=== PATIENT | male | born 1990 | race Two or more races ===

== ENCOUNTER 2022-02-21 10:06 | Emergency (ER) | payer OTHER, SELFPAY ==
--- NOTE | ~2022-02-21 | XR_ITS ---
EXAMINATION: XR CHEST CLINICAL INFORMATION: Shortness of breath and chest pain. COMPARISON: None TECHNIQUE: 2 views of the chest were obtained. FINDINGS: Low lung volume is present bilaterally. No significant abnormality is noted involving the heart, lungs, mediastinum, bony thorax or soft tissues. XR/XR chest 2V IMPRESSION: Low lung volume bilaterally, otherwise unremarkable.
--- NOTE | 2022-02-21 10:12 | ED_ITS ---
HPI - General Adult General Chief complaint: Allergic Reaction Stated complaint: Allergic Reaction Time Seen by Provider: 02/21/22 10:12 Source: patient and EMS Mode of arrival: EMS Limitations: no limitations History of Present Illness HPI narrative: Patient is a 31 year old diabetic male presenting to the emergency department today with a possible allergic reaction. Patient states that he was sitting at his computer when he noticed a rash to his right forearm that began to be itchy and then he had a moment of shortness of breath. Patient states that his shortness of breath resolved instantaneously and he does not have a history of asthma. Patient denies any current dizziness, lightheadedness, abdominal pain, nausea, vomiting, fever, chills, blurry vision, double vision, loss of vision, chest pain, difficulty breathing, shortness of breath, back pain, night sweats, pain with urination, increased urinary frequency, increased urinary urgency, blood in his urine or stool, syncope or a near syncopal episode, recent trauma or falls, bowel incontinence, bladder incontinence, bowel retention, bladder retention, or any other complaints at this time. Onset (ago): minute(s) Severity: mild Severity scale (1-10): 1 Relieving factors: none Exacerbating factors: none Associated symptoms: shortness of breath (now resolved) Treatments prior to arrival: none Related Data Previous Rx's Medication Instructions Recorded atorvastatin 40 mg tablet 40 mg PO BEDTIME 90 days #90 tabs 09/18/21 cholecalciferol (vitamin D3) 1,250 1,250 mcg PO QWEEK 30 days #5 caps 09/18/21 mcg (50,000 unit) capsule fluticasone propionate 50 1 spray intranasal BID #16 grams 09/18/21 mcg/actuation nasal spray,suspension (Flonase Allergy Relief) metformin 1,000 mg tablet 1,000 mg PO BID 90 days #180 tabs 09/18/21 omeprazole 20 mg capsule,delayed 20 mg PO DAILY 90 days #90 caps 09/18/21 release insulin lispro 200 unit/mL (3 mL) 10 unit (0.05 mL) subcut TID 90 09/30/21 subcutaneous pen (Humalog #13.5 mL U-200 Insulin) dulaglutide 0.75 mg/0.5 mL 0.75 mg (0.5 mL) subcut QWEEK 30 11/03/21 subcutaneous pen injector days #2.5 mL (Trulicity) flash glucose scanning reader #1 ea 11/03/21 (FreeStyle Amauri 14 Day [place]) flash glucose sensor (FreeStyle #2 ea 11/11/21 Amauri 14 Day Sensor) Allergies Allergy/AdvReac Type Severity Reaction Status Date / Time shellfish derived Allergy Unknown UNKNOWN Verified 09/18/21 14:32 [SHELLFISH DERIVED] Review of Systems Constitutional: Constitutional: Reports no additional constitutional complaints, Denies chills, Denies fever(s) and Denies night sweats Eyes: Eyes: Reports no additional eye complaints, Denies blurry vision, Denies change in vision, Denies diplopia, Denies eye discharge, Denies loss of vision and Denies eye pain ENT: Denies dizziness Cardiovascular: Cardiovascular: Reports no additional cardiovascular complaints, Denies chest pain, Denies lightheadedness, Denies Loss of Consciousness and Reports dyspnea (now resolved) Respiratory: Respiratory: Reports no additional respiratory complaints and Reports dyspnea (now resolved) Gastrointestinal: Gastrointestinal: Reports no additional gastrointestinal complaints, Denies abdominal pain, Denies melena, Denies hematochezia, Denies change in bowel habits and Denies change in stool character Genitourinary: Genitourinary: Reports no additional male genitourinary complaints, Denies hematuria, Denies oliguria, Denies difficulty urinating, Denies dysuria, Denies urinary frequency, Denies urinary hesitancy, Denies urinary incontinence and Denies urinary urgency Musculoskeletal: Musculoskeletal: Reports no additional musculoskeletal complaints, Denies numbness and Denies tingling Integumentary/Breasts: Comments: rash to right forearm Neurologic: Denies dizziness, Denies loss of vision, Denies numbness and Den ies tingling Psychiatric: Psychiatric: Reports no additional psychiatric complaints Endocrine: Endocrine: Reports no additional endocrine complaints Hematologic/Lymphatic: Hematologic/Lymphatic: Reports no additional hematologic/lymphatic complaints Allergic/Immunologic: Allergic/Immunologic: Reports no additional allergic/immunologic complaints PMFSH Past Medical History Attestation statement: The following information was validated with the patient. Source: old records reviewed Surgical History History of inguinal hernia repair Family History Family History Father CAD (coronary artery disease) Diabetes Hypertension Mother Diabetes Hypertension Social History Social History Housing: Apartment Alcohol intake: current Alcohol intake frequency: holidays/special occasions only Patient Tobacco Use Status: Never used Tobacco Second Hand Smoke Exposure: No Use of substances other than those prescribed or required for medical reasons: No Advance Directives: No Advance Directives Information Provided: No service: No Current occupational status: unemployed and student Physical Exam ED Vital Signs: Vital Signs - 24 hr 02/21/22 10:17 02/21/22 10:43 02/21/22 13:54 Temperature 98.3 F Pulse Rate 95 95 94 Respiratory Rate 18 18 Blood Pressure 144/86 H 117/74 Pulse Oximetry 97 98 Oxygen Delivery Method Room Air Room Air BMI result Body Mass Index 31.8 Const General: cooperative, no acute distress, alert and awake Nutritional Appearance: well nourished Orientation/consciousness: patient oriented x3 Limitations: no limitations HENMT Head: Yes normal to inspection and Yes atraumatic Ears: hearing grossly normal bilaterally and external ears normal General nose exam: Normal external nose present, no nasal discharge noted and no epistaxis Face and sinus: Yes normal facial exam, No abrasion and No laceration Mouth: Normal oral and palatal mucosa present, no drooling and no muffled voice Eyes General: appearance normal, both eyes and all related structures Periorbital: periorbital findings normal Eyelids: Yes eyelids normal Conjunctivae: conjunctivae normal Pupils: Equal, round and reactive pupils present EOM: EOMs intact bilaterally Neck Neck: Yes normal visual inspection, Yes full ROM and Yes no lymphadenopathy Chest Chest palpation & inspection: normal inspection of the chest Resp Effort & Inspection: normal respiratory effort and able to speak in complete sentences Auscultation: clear to auscultation bilaterally Cardio Rate: regular rate Rhythm: regular rhythm GI Inspection: Yes normal to inspection Skin Other: petechia type rash to the right forearm Neuro General: patient oriented x3 and moves all extremities Cranial nerves: Yes Equal, round and reactive pupils present Cognition (Neuro): normal cognition Motor exam (neuro): 5/5 motor strength present throughout Sensory Exam: Normal double simultaneous stimulation for sensation Coordination: [id number] test normal Extrem General: Yes normal to inspection, Yes full ROM and Yes capillary refill normal Psych Appearance: grossly normal Mental Status: mental status grossly normal Affect: normal affect Attitude: cooperative Thought process: Normal thought process present Thought content: Normal thought content present Insight: Good insight present (Psych) Medical Decision Making MDM Narrative Medical decision making narrative: Patient is a 31 year old male presenting to the emergency department today with resolved shortness of breath and a right forearm rash. Patient's physical exam showed a petechia type rash to the right forearm but was otherwise unremarkable. Patient's blood work showed an elevated glucose but was otherwise unremarkable. Patient's EKG was unremarkable. Patient's chest x-ray showed no acute process. I explained my physical exam findings as well as all test results to the patient. I answered all questions asked by the patient. Patient received IV Decadron and IV fluids which he stated helped his symptoms significantly. Patient's sugar came down considerably post IV fluids. Patient's clinical picture and work up was not consistent with DKA or a diabetic emergency. I stressed the importance of the patient taking his medication as prescribed. I stressed the importance of the patient following up with his primary care provider. I stressed the importance of the patient returning to the emergency department immediately if his symptoms were to worsen or if he were to develop any dizziness, shortness of breath, difficulty breathing, chest pain, blurry vision, loss of vision, nausea, vomiting, abdominal pain, fever, chills, back pain, or any other complaints. Óscar james verbalized agreement and understanding with this treatment plan and discharge. Differential Diagnosis Differential Diagnosis: allergic reaction, viral illness Medical Records Medical records reviewed: Yes I reviewed the patient's medical records. Lab Data Lab results reviewed: Yes I reviewed the patient's lab results. Result diagrams: 02/21/22 10:57 02/21/22 10:57 Labs: Lab Results 02/21/22 02/21/22 02/21/22 Range/Units 10:57 10:57 10:57 WBC 7.0 (4.8-10.8) X10*3/uL RBC 5.26 (4.60-5.80) X10*6/uL Hgb 13.6 L (14.0-18.0) g/dl Hct 42.5 (42.0-52.0) % MCV 80.8 (80.0-98.0) fL MCH 25.9 L (27.0-33.0) pg MCHC 32.0 (31.0-36.0) g/dl RDW 13.4 (11.0-16.0) % Plt Count 257 (160-400) X10*3/uL MPV 9.8 (9.4-12.4) fL Immature Gran % (Auto) 0.3 (0.0-0.4) % Neut % (Auto) 62.4 (45-73) % Lymph % (Auto) 27.6 (20-40) % [place] % (Auto) 7.7 (2-11) % Eos % (Auto) 1.4 (0-4) % Baso % (Auto) 0.6 (0-2) % Lymph # (Auto) 1.9 (1.2-4.9) X10*3/uL [place] # (Auto) 0.5 (0.1-1.2) X10*3/uL Eos # (Auto) 0.1 (0.0-0.4) X10*3/uL Baso # (Auto) 0.0 (0.0-0.2) X10*3/uL Abs Immat Gran (auto) 0.02 (0.00-0.03) X10*3/uL Absolute Neuts (auto) 4.4 (2.0-8.3) x10*3/uL Absolute Nucleated RBC 0.000 (0.0-0.012) X10*3/uL Nucleated RBC % (auto) 0.0 (0.0-0.2) /100WBC VBG pH (7.32-7.43) VBG pCO2 mmHg VBG pO2 mmHg VBG HCO3 (22-26) mmol/L VBG O2 Saturation % VBG Base Excess mmol/L Sodium 136 (135-145) mmol/L Potassium 4.5 (3.3-5.1) mmol/L Chloride 102 (96-108) mmol/L Carbon Dioxide 25 (22-29) mmol/L Anion Gap 14 (12-20) BUN 13 (9-16) mg/dL Creatinine 0.87 (0.5-1.4) mg/dL Estim Creat Clear Calc 129.9 Estimated GFR > 60 POC Glucose (60-115) mg/dL Random Glucose 404 H* (60-115) mg/dL Calcium 9.7 (8.4-10.2) mg/dL Total Bilirubin 1.0 (0.0-1.0) mg/dL AST 17 (5-37) U/L ALT 35 (0-40) U/L Alkaline Phosphatase 66 (39-117) U/L Ammonia 32 (13-55) umol/L Total Protein 6.9 (6.5-8.0) g/dL Albumin 4.4 (3.5-5.0) g/dL Respiratory Panel [place] Adenovirus (Rapid PCR) (Not Detect.) B.pert (TEM-PCR) (Not Detect.) B.parapertussis DNA PCR (Not Detect.) C. pneumoniae DNA (PCR) (Not Detect.) Coronavirus OC43 (PCR) (Not Detect.) Coronavirus HKU1 (PCR) (Not Detect.) Coronavirus 229E (PCR) (Not Detect.) Coronavirus NL63 (PCR) (Not Detect.) Human Metapneumovir PCR (Not Detect.) Influenza A (RT-PCR) (Not Detect.) Influenza B (RT-PCR) (Not Detect.) M. pneumoniae (PCR) (Not Detect.) Parainfluenza 1 (PCR) (Not Detect.) Parainfluenza 2 (PCR) (Not Detect.) Parainfluenza 3 (PCR) (Not Detect.) Parainfluenza 4 (PCR) (Not Detect.) RSV (PCR) (Not Detect.) Entero/Rhino (PCR) (Not Detect.) SARS-CoV-2 RNA (RT-PCR) (Not Detect.) 02/21/22 02/21/22 02/21/22 Range/Units 11:01 11:13 13:40 WBC (4.8-10.8) X10*3/uL RBC (4.60-5.80) X10*6/uL Hgb (14.0-18.0) g/dl Hct (42.0-52.0) % MCV (80.0-98.0) fL MCH (27.0-33.0) pg MCHC (31.0-36.0) g/dl RDW (11.0-16.0) % Plt Count (160-400) X10*3/uL MPV (9.4-12.4) fL Immature Gran % (Auto) (0.0-0.4) % Neut % (Auto) (45-73) % Lymph % (Auto) (20-40) % [place] % (Auto) (2-11) % Eos % (Auto) (0-4) % Baso % (Auto) (0-2) % Lymph # (Auto) (1.2-4.9) X10*3/uL [place] # (Auto) (0.1-1.2) X10*3/uL Eos # (Auto) (0.0-0.4) X10*3/uL Baso # (Auto) (0.0-0.2) X10*3/uL Abs Immat Gran (auto) (0.00-0.03) X10*3/uL Absolute Neuts (auto) (2.0-8.3) x10*3/uL Absolute Nucleated RBC (0.0-0.012) X10*3/uL Nucleated RBC % (auto) (0.0-0.2) /100WBC VBG pH 7.37 (7.32-7.43) VBG pCO2 39 mmHg VBG pO2 43 mmHg VBG HCO3 23 (22-26) mmol/L VBG O2 Saturation 72.0 % VBG Base Excess -1.6 mmol/L Sodium (135-145) mmol/L Potassium (3.3-5.1) mmol/L Chloride (96-108) mmol/L Carbon Dioxide (22-29) mmol/L Anion Gap (12-20) BUN (9-16) mg/dL Creatinine (0.5-1.4) mg/dL Estim Creat Clear Calc Estimated GFR POC Glucose 234 H (60-115) mg/dL Random Glucose (60-115) mg/dL Calcium (8.4-10.2) mg/dL Total Bilirubin (0.0-1.0) mg/dL AST (5-37) U/L ALT (0-40) U/L Alkaline Phosphatase (39-117) U/L Ammonia (13-55) umol/L Total Protein (6.5-8.0) g/dL Albumin (3.5-5.0) g/dL Respiratory Panel [place] See Note Adenovirus (Rapid PCR) Not Detected (Not Detect.) B.pert (TEM-PCR) Not Detected (Not Detect.) B.parapertussis DNA PCR Not Detected (Not Detect.) C. pneumoniae DNA (PCR) Not Detected (Not Detect.) Coronavirus OC43 (PCR) Not Detected (Not Detect.) Coronavirus HKU1 (PCR) Not Detected (Not Detect.) Coronavirus 229E (PCR) Not Detected (Not Detect.) Coronavirus NL63 (PCR) Not Detected (Not Detect.) Human Metapneumovir PCR Not Detected (Not Detect.) Influenza A (RT-PCR) Not Detected (Not Detect.) Influenza B (RT-PCR) Not Detected (Not Detect.) M. pneumoniae (PCR) Not Detected (Not Detect.) Parainfluenza 1 (PCR) Not Detected (Not Detect.) Parainfluenza 2 (PCR) Not Detected (Not Detect.) Parainfluenza 3 (PCR) Not Detected (Not Detect.) Parainfluenza 4 (PCR) Not Detected (Not Detect.) RSV (PCR) Not Detected (Not Detect.) Entero/Rhino (PCR) Not Detected (Not Detect.) SARS-CoV-2 RNA (RT-PCR) Not Detected (Not Detect.) Imaging Data Chest x-ray: Attestation: I personally reviewed and interpreted this imaging study as follows: My impression: No acute process. Radiologist's impression: EXAMINATION: XR CHEST CLINICAL INFORMATION: Shortness of breath and chest pain. COMPARISON: None TECHNIQUE: 2 views of the chest were obtained. FINDINGS: Low lung volume is present bilaterally. No significant abnormality is noted involving the heart, lungs, mediastinum, bony thorax or soft tissues. XR/XR chest 2V IMPRESSION: Low lung volume bilaterally, otherwise unremarkable. Dictated By: Briseyda Contreras MD Signed By: Electronically signed by Briseyda Contreras MD 02/21/22 0563 ECG Data Attestation: I personally reviewed and interpreted this ECG as follows: Prior ECG tracings: not available for review Interpretation: Vent. Rate: 095 BPM ? ? Atrial Rate: 095 BPM P-R Int: 146 ms? QRS Dur: 092 ms QT Int: 348 ms ? ? ? P-R-T Axes: 032 019 020 degrees QTc Int: 437 ms ? Normal sinus rhythm Normal ECG No previous ECGs available DD/ 1029 Discharge Plan Discharge Clinical Impression: History of diabetes mellitus, Viral illness Patient Disposition: Home, Self-Care Instructions: Viral Syndrome (ED) Additional Instructions: Follow up with your primary care provider. Return to the emergency department immediately if your symptoms worsen or if you develop any dizziness, shortness of breath, difficulty breathing, chest pain, blurry vision, loss of vision, nausea, vomiting, abdominal pain, fever, chills, back pain, or any other complaints. Prescriptions: No Action Humalog KwikPen Insulin 200 unit/mL (3 mL) insulin pen 10 unit subcut TID 90 Days Qty: 13.5 1RF Trulicity 0.75 mg/0.5 mL pen injector 0.75 mg subcut QWEEK 30 Days Qty: 2.5 6RF (DME) FreeStyle Amauri 14 Day [place] Misc See Rx Instructions .Route Qty: 1 3RF Rx Instructions: As directed, With meals, 14 days (DME) FreeStyle Amauri 14 Day Sensor Kit See Rx Instructions .Route Qty: 2 3RF Rx Instructions: As directed atorvastatin 40 mg tablet 40 mg PO BEDTIME 90 Days Qty: 90 3RF cholecalciferol (vitamin D3) 1,250 mcg (50,000 unit) capsule 1,250 mcg PO QWEEK 30 Days Qty: 5 6RF metformin 1,000 mg tablet 1,000 mg PO BID 90 Days Qty: 180 3RF omeprazole 20 mg capsule,delayed release(DR/EC) 20 mg PO DAILY 90 Days Qty: 90 3RF fluticasone propionate [Flonase Allergy Relief] 50 mcg/actuation spray,suspension 1 spray intranasal BID Qty: 16 0RF Rx Instructions: administer into each nostril Referrals: Rosalinda Winston MD [Primary Care Provider] - Stand Alone Forms: Work/School Release Interventions: ED Discharge Assessment Last Done: 02/21/22 14:05 Discharge Date/Time: 02/21/22 14:10 Print Language: Turkish
[2022-02-21 10:17] VITALS: BP 132/70; BP 144/86; PULSE 88; PULSE 95; O2SAT 97; O2SAT 98; BMI 31.8
--- NOTE | 2022-02-21 10:18 | ECG_ITS ---
Test Reason : ALLERGIC REACTION Blood Pressure : / mmHG Vent. Rate : 095 BPM Atrial Rate : 095 BPM P-R Int : 146 ms QRS Dur : 092 ms QT Int : 348 ms P-R-T Axes : 032 019 020 degrees QTc Int : 437 ms Normal sinus rhythm Normal ECG No previous ECGs available Referred By: Kellie Powell Electronically Signed By:TIGIST ELIAS MD
[2022-02-21] MEDS: Albuterol/Iprat 2.5/0.5MG 3 ML AMPUL.NEB INHALE (10:42)
[2022-02-21 10:43] VITALS: PULSE 95; RESP 18; O2SAT 97
[2022-02-21] MEDS: 0.9 % Sodium Chloride 1,000 ML 999 ML IVCONT (11:02)
[2022-02-21 11:04] LABS: MANUAL DIFF FLAG NO
[2022-02-21 11:08] LABS: Basophils Percent Auto 0.6 % (0-2); Eosinophils Absolute Auto 0.1 X10*3/uL (0.0-0.4); Eosinophils Percent Auto 1.4 % (0-4); Hematocrit 42.5 % (42.0-52.0); Hemoglobin 13.6 g/dl (14.0-18.0); Imm Gran Abs Auto 0.02 X10*3/uL (0.00-0.03); Imm Gran Pct Auto 0.3 % (0.0-0.4); Lymphocytes Absolute Auto 1.9 X10*3/uL (1.2-4.9); Lymphocytes Percent Auto 27.6 % (20-40); Mean Corpuscular Hemoglobin 25.9 pg (27.0-33.0); Mean Corpuscular Volume 80.8 fL (80.0-98.0); Mean Platelet Volume 9.8 fL (9.4-12.4); Monocytes Absolute Auto 0.5 X10*3/uL (0.1-1.2); Monocytes Percent Auto 7.7 % (2-11); Neutrophils Absolute Auto 4.4 x10*3/uL (2.0-8.3); Neutrophils Percent Auto 62.4 % (45-73); Platelet Count 257 X10*3/uL (160-400); Red Blood Count 5.26 X10*6/uL (4.60-5.80); Red Cell Distribution Width 13.4 % (11.0-16.0)
[2022-02-21 11:14] LABS: Ammonia 32 umol/L (13-55)
[2022-02-21 11:15] LABS: VBG Base Excess -1.6 mmol/L; VBG HCO3 23 mmol/L (22-26); VBG pCO2 39 mmHg; VBG pH 7.37 (7.32-7.43); VBG pO2 43 mmHg
[2022-02-21 11:15] LABS: Venous Blood Gas Refer to POC result
[2022-02-21 11:39] LABS: Alanine Aminotransferase 35 U/L (0-40); Albumin Level 4.4 g/dL (3.5-5.0); Alkaline Phosphatase 66 U/L (39-117); Anion Gap 14 (12-20); Aspartate Amino Transferase 17 U/L (5-37); Blood Urea Nitrogen 13 mg/dL (9-16); Calcium 9.7 mg/dL (8.4-10.2); Carbon Dioxide 25 mmol/L (22-29); Chloride 102 mmol/L (96-108); Creatinine Clr Calc Pharmacy 129.9; Estimated Glomerular Filt Rate > 60; Glucose Random 404 mg/dL (60-115); Potassium 4.5 mmol/L (3.3-5.1); Sodium 136 mmol/L (135-145); Total Protein 6.9 g/dL (6.5-8.0)
[2022-02-21 13:34] LABS: Adenovirus PCR Not Detected (Not Detect.); Bordetella parapertussis PCR Not Detected (Not Detect.); Bordetella pertussis PCR Not Detected (Not Detect.); Chlamydia pneumoniae PCR Not Detected (Not Detect.); Coronavirus 229E PCR Not Detected (Not Detect.); Coronavirus HKU1 PCR Not Detected (Not Detect.); Coronavirus NL63 PCR Not Detected (Not Detect.); Coronavirus OC43 PCR Not Detected (Not Detect.); Human metapneumovirus PCR Not Detected (Not Detect.); Influenza A PCR Not Detected (Not Detect.); Influenza B PCR Not Detected (Not Detect.); Mycoplasma pneumoniae PCR Not Detected (Not Detect.); Parainfluenza 1 PCR Not Detected (Not Detect.); Parainfluenza 2 PCR Not Detected (Not Detect.); Parainfluenza 3 PCR Not Detected (Not Detect.); Parainfluenza 4 PCR Not Detected (Not Detect.); RSV PCR Not Detected (Not Detect.); Rhino/Enterovirus PCR Not Detected (Not Detect.); SARS-CoV-2 PCR Not Detected (Not Detect.)
[2022-02-21 13:44] LABS: Glucose, Whole Blood 234 mg/dL (60-115)
[2022-02-21 13:54] VITALS: BP 117/74; PULSE 94; RESP 18; TEMP 36.8; O2SAT 98
== END 2022-02-21 14:10 | disposition home or self-care (01) ==
PROVIDERS: Physician Assistant Medical; Emergency Provider Emergency Medicine Emergency Medical Services; PCP Internal Medicine
DX: B34.9 Viral infection, unspecified (principal); R06.02 Shortness of breath; R21 Rash and other nonspecific skin eruption; R07.89 Other chest pain; Z20.822 Contact with and (suspected) exposure to COVID-19; Z79.899 Other long term (current) drug therapy
CPT/HCPCS: 36415; 71046; 80053; 82140; 82803; 82947; 85025; 87633; 93005; 94640; 96360; 99284

== ENCOUNTER 2023-02-16 11:24 | Emergency (ER) | payer OTHER, SELFPAY ==
[2023-02-16 11:34] VITALS: BP 137/89; PULSE 109; RESP 20; TEMP 36.1; O2SAT 100; BMI 31.3
--- NOTE | 2023-02-16 11:37 | ECG_ITS ---
Test Reason : pain Blood Pressure : / mmHG Vent. Rate : 101 BPM Atrial Rate : 101 BPM P-R Int : 148 ms QRS Dur : 094 ms QT Int : 324 ms P-R-T Axes : 028 033 025 degrees QTc Int : 420 ms Sinus tachycardia Otherwise normal ECG When compared with ECG of 21-FEB-2022 10:29, No significant change was found Referred By: Vinicio Chase Electronically Signed By:TORO VILLAVICENCIO
--- NOTE | 2023-02-16 11:37 | ED.GENADULT ---
HPI - General Adult General Chief complaint: General Medical Stated complaint: discomfort in chest, shakes, ? sugar dropped Time Seen by Provider: 02/16/23 12:53 Source: patient Mode of arrival: ambulatory Limitations: no limitations History of Present Illness HPI narrative: \32-year-old male who presents emergency department for evaluation of chest pain, shakiness, difficulty talking, fatigue. The patient works for [employer] and he was at a store meeting. He states that he started to feel ill. He went outside to get fresh air. He then developed discomfort in his chest, he points to his eye 40 area when asked to localize the pain. He states the pain was a brief, sharp pain which was intermittent but came back several times. He then had a weird sensation is head and had difficulty talking. The patient states this is 1st episode of these symptoms. He does have a history of diabetes but he has not been checking his sugar but he states that he has been compliant with his medications. Related Data Previous Rx's Medication Instructions Recorded atorvastatin 40 mg tablet 40 mg PO BEDTIME 90 days #90 tabs 09/18/21 cholecalciferol (vitamin D3) 1,250 1,250 mcg PO QWEEK 30 days #5 caps 09/18/21 mcg (50,000 unit) capsule fluticasone propionate 50 1 spray intranasal BID #16 grams 09/18/21 mcg/actuation nasal spray,suspension (Flonase Allergy Relief) insulin lispro 200 unit/mL (3 mL) 10 unit (0.05 mL) subcut TID 90 09/30/21 subcutaneous pen (Humalog #13.5 mL U-200 Insulin) flash glucose scanning reader #1 ea 11/03/21 (FreeStyle Amauri 14 Day [place]) metformin 1,000 mg tablet 1,000 mg PO BID 90 days #180 tabs 09/07/22 omeprazole 20 mg capsule,delayed 20 mg PO DAILY 90 days #90 caps 09/07/22 release flash glucose sensor (FreeStyle #2 ea 12/02/22 Amauri 14 Day Sensor kit) dulaglutide 0.75 mg/0.5 mL 0.75 mg (0.5 mL) subcut QWEEK 30 02/07/23 subcutaneous pen injector days #2.5 mL (Trulicity) Allergies Allergy/AdvReac Type Severity Reaction Status Date / Time shellfish derived Allergy Unknown UNKNOWN Verified 02/16/23 11:38 [SHELLFISH DERIVED] Review of Systems Review of Systems: Yes all other systems are reviewed and are negative [facility] Past Medical History [facility] Narrative: Social history: He denies tobacco, alcohol and drug use. Medical History Diabetes mellitus GERD (gastroesophageal reflux disease) Hypovitaminosis D Pure hypercholesterolemia Surgical History History of inguinal hernia repair Family History Family History Father CAD (coronary artery disease) Diabetes Hypertension Mother Diabetes Hypertension Social History Social History Housing: Apartment Alcohol intake: current Alcohol intake frequency: holidays/special occasions only Patient Tobacco Use Status: Never used Tobacco Second Hand Smoke Exposure: No Advance Directives: No Advance Directives Information Provided: Yes service: No Current occupational status: unemployed and student Physical Exam ED Vital Signs: Vital Signs - 24 hr 02/16/23 11:34 02/16/23 13:53 Temperature 97 F 98.3 F Pulse Rate 109 H 86 Respiratory Rate 20 14 Blood Pressure 137/89 121/77 Pulse Oximetry 100 BMI result Body Mass Index 31.3 Patient's initial BP in the emergency department 73/40. Gen: Normal HEENT Const General: cooperative and no acute distress Orientation/consciousness: oriented to person and oriented to place Limitations: no limitations [facility] Head: Yes normal to inspection, Yes normocephalic and Yes atraumatic Ears: external ears normal General nose exam: Normal external nose present Face and sinus: Yes normal facial exam Mouth: Normal oral and palatal mucosa present Throat: Yes posterior oropharynx normal Eyes General: appearance normal, both eyes and all related structures Periorbital: periorbital findings normal Eyelids: Yes eyelids normal Conjunctivae: conjunctivae normal Sclerae: sclerae normal Corneas: corneas normal Pupils: Equal, round and reactive pupils present Neck Neck: Yes normal visual inspection, Yes no lymphadenopathy, Yes trachea midline and Yes supple Chest Chest palpation & inspection: normal inspection of the chest and normal palpation of entire chest wall Resp Effort & Inspection: normal respiratory effort and able to speak in complete sentences Auscultation: clear to auscultation bilaterally Cardio Rate: regular rate Rhythm: regular rhythm Heart sounds: S1 normal heart sound present, S2 normal heart sound present and no murmurs GI Inspection: Yes normal to inspection Palpation (GI): Soft to palpation, nontender and no guarding Auscultation: normal bowel sounds General: Yes no CVA tenderness Back/Spine/Pelvis Back: no CVA tenderness Skin General skin exam: no rashes or lesions noted Neuro General: oriented to person and oriented to place Cranial nerves: Yes CN's II-XII intact bilaterally and Yes Equal, round and reactive pupils present Cognition (Neuro): normal cognition Motor exam (neuro): 5/5 motor strength present throughout Extrem General: Yes normal to inspection Psych Appearance: grossly normal Speech and movement: Normal speech and movement present Affect: normal affect Attitude: cooperative Thought process: Normal thought process present Thought content: Normal thought content present Course Course Course Narrative: RME- 32 year old male presents for evaluation of chest tightness and shaking. POC glucose is 407. Plan for labs and ekg Medications Administered Generic Name Dose Route Start Last Admin Trade Name Freq PRN Reason Stop Dose Admin Sodium Chloride 1,000 mls @ 999 mls/hr 02/16/23 15:24 02/16/23 15:46 Ns IV 02/16/23 16:24 Infused .Q1H1M STA Infusion Discontinued Medications Generic Name Dose Route Start Last Admin Trade Name Freq PRN Reason Stop Dose Admin Sodium Chloride 1,000 mls @ 999 mls/hr 02/16/23 13:10 02/16/23 14:55 Ns IV 02/16/23 14:10 Infused .Q1H1M STA Infusion Insulin Human Regular 5 unit 02/16/23 13:10 02/16/23 13:43 Insulin Regular, Human 100 Unit/Ml 3 Ml Vial IVPUSH 02/16/23 13:11 5 unit ONCE ONE Administration Medical Decision Making Medical Decision Making [facility] Narrative: 32-year-old male with history of diabetes who presents emergency department for evaluation of gradual onset of chest pain, difficulty talking and a weird sensation in his head. His vital signs were normal. Patient's physical examination was unremarkable. I did order laboratory evaluation to include CBC, BMP, troponin, EKG 1558: Patient's laboratory evaluation was consistent with hyperglycemia EKG was unremarkable and troponin was below detectable limits. Patient is most likely dehydrated volume depleted secondary to his hyperglycemia. He was treated with normal saline IV times 2 L and regular insulin 5 units IV with improvement of his symptoms and his repeat POC glucose improved I did discuss management of diabetes in the importance of following his blood sugar, being compliant with his medication and diet restrictions. Patient was advised to follow-up with his PCP and to get referred to an animal cruelty investigator to help with his diabetes. Differential Diagnosis Differential diagnosis includes was not limited to myocardial infarction, electrolyte abnormality, anemia, hyperglycemia, hypoglycemia, anxiety attack Admission/Observation Consideration of admission/observation: Escalation of care including admission/observation considered Lab Data MDM Lab Attestation statement: I reviewed the patient's lab results. My interpretation patient's laboratory evaluation as follows: Elevated glucose 399, normal bicarb 25, high sensitive troponin I below detectable limits 02/16/23 12:02 02/16/23 12:02 Labs: Lab Results 02/16/23 02/16/23 02/16/23 Range/Units 11:36 12:02 12:02 WBC 7.0 (4.8-10.8) X10*3/uL RBC 5.35 (4.60-5.80) X10*6/uL Hgb 14.0 (14.0-18.0) g/dl Hct 43.9 (42.0-52.0) % MCV 82.1 (80.0-98.0) fL MCH 26.2 L (27.0-33.0) pg MCHC 31.9 (31.0-36.0) g/dl RDW 13.2 (11.0-16.0) % Plt Count 216 (160-400) X10*3/uL MPV 10.2 (9.4-12.4) fL Immature Gran % (Auto) 0.6 H (0.0-0.4) % Neut % (Auto) 67.2 (45-73) % Lymph % (Auto) 18.8 L (20-40) % Gibson % (Auto) 11.8 H (2-11) % Eos % (Auto) 0.9 (0-4) % Baso % (Auto) 0.7 (0-2) % Lymph # (Auto) 1.3 (1.2-4.9) X10*3/uL Gibson # (Auto) 0.8 (0.1-1.2) X10*3/uL Eos # (Auto) 0.1 (0.0-0.4) X10*3/uL Baso # (Auto) 0.1 (0.0-0.2) X10*3/uL Abs Immat Gran (auto) 0.04 H (0.00-0.03) X10*3/uL Absolute Neuts (auto) 4.7 (2.0-8.3) x10*3/uL Absolute Nucleated RBC 0.000 (0.0-0.012) X10*3/uL Nucleated RBC % (auto) 0.0 (0.0-0.2) /100WBC Sodium 134 L (135-145) mmol/L Potassium 4.1 (3.3-5.1) mmol/L Chloride 99 (96-108) mmol/L Carbon Dioxide 25 (22-29) mmol/L Anion Gap 14 (12-20) BUN 12 (9-16) mg/dL Creatinine 0.81 (0.5-1.4) mg/dL Estim Creat Clear Calc 137.3 Estimated GFR > 60 POC Glucose 407 H* (60-115) mg/dL Random Glucose 399 H* (60-115) mg/dL Calcium 11.3 H D (8.4-10.2) mg/dL Troponin I High Sens (<3.5-35.0) ng/L 02/16/23 02/16/23 Range/Units 12:02 14:46 WBC (4.8-10.8) X10*3/uL RBC (4.60-5.80) X10*6/uL Hgb (14.0-18.0) g/dl Hct (42.0-52.0) % MCV (80.0-98.0) fL MCH (27.0-33.0) pg MCHC (31.0-36.0) g/dl RDW (11.0-16.0) % Plt Count (160-400) X10*3/uL MPV (9.4-12.4) fL Immature Gran % (Auto) (0.0-0.4) % Neut % (Auto) (45-73) % Lymph % (Auto) (20-40) % Gibson % (Auto) (2-11) % Eos % (Auto) (0-4) % Baso % (Auto) (0-2) % Lymph # (Auto) (1.2-4.9) X10*3/uL [place] # (Auto) (0.1-1.2) X10*3/uL Eos # (Auto) (0.0-0.4) X10*3/uL Baso # (Auto) (0.0-0.2) X10*3/uL Abs Immat Gran (auto) (0.00-0.03) X10*3/uL Absolute Neuts (auto) (2.0-8.3) x10*3/uL Absolute Nucleated RBC (0.0-0.012) X10*3/uL Nucleated RBC % (auto) (0.0-0.2) /100WBC Sodium (135-145) mmol/L Potassium (3.3-5.1) mmol/L Chloride (96-108) mmol/L Carbon Dioxide (22-29) mmol/L Anion Gap (12-20) BUN (9-16) mg/dL Creatinine (0.5-1.4) mg/dL Estim Creat Clear Calc Estimated GFR POC Glucose 217 H (60-115) mg/dL Random Glucose (60-115) mg/dL Calcium (8.4-10.2) mg/dL Troponin I High Sens < 2.7 (<3.5-35.0) ng/L Independent Interpretation I performed an independent interpretation of an: EKG Interpretation: My independent interpretation patient's 12 EKG done at 11:53 hours is as follows: Sinus tachycardia rate of 101, normal AR interval, QRS duration QTC interval, no ST segment elevation, no ST segment depression, no T-wave abnormalities, no PACs, no PVCs except for the tachycardia this is a normal EKG Critical Care Time Critical Care Time Critical Care Time: Yes Total Critical Care Time: 30 Attestation: Critical Care: The patient was critically ill with a high probability of imminent or life threatening deterioration. I spent greater than 30 minutes of discontinuous time evaluating the patient,delivering critical care at the bedside, discussing and evaluating pertinent data with consultants. Critical care time does not include time spent performing separately billable procedures or teaching. Total time spent performing critical care was 30 minutes. Discharge Plan Discharge Clinical Impression: Diabetes mellitus, Acute hyperglycemia, Acute dehydration Patient Disposition: Home, Self-Care Additional Instructions: Your serum glucose was 399 your point of care glucose was over 400. When your glucose gets above 400, your very dehydrated and volume depleted and this is what made you feel bad today. You received regular insulin 5 units IV and 2 L of normal saline. It is important to follow your glucose and try to maintain a glucose between 100 and 120. Make sure you take your medications as directed Increase your fluid intake, stay on a low-carbohydrate diabetic diet, exercise and try to lose weight-these things will help improve your glucose. Ask your doctor to refer you to animal cruelty investigator try to help you get better control of your glucose. Follow-up with your doctor in 2 days. Please return to the emergency department if your symptoms get worse or if you develop any symptoms that are concerning to you. Prescriptions: No Action Humalog KwikPen Insulin 200 unit/mL (3 mL) insulin pen 10 unit subcut TID 90 Days Qty: 13.5 1RF (DME) FreeStyle Amauri 14 Day [place] Misc See Rx Instructions .Route Qty: 1 3RF Rx Instructions: As directed, With meals, 14 days metformin 1,000 mg tablet 1,000 mg PO BID 90 Days Qty: 180 3RF omeprazole 20 mg capsule,delayed release(DR/EC) 20 mg PO DAILY 90 Days Qty: 90 3RF (DME) FreeStyle Amauri 14 Day Sensor Kit See Rx Instructions .Route Qty: 2 3RF Rx Instructions: As directed Trulicity 0.75 mg/0.5 mL pen injector 0.75 mg subcut QWEEK 30 Days Qty: 2.5 6RF atorvastatin 40 mg tablet 40 mg PO BEDTIME 90 Days Qty: 90 3RF cholecalciferol (vitamin D3) 1,250 mcg (50,000 unit) capsule 1,250 mcg PO QWEEK 30 Days Qty: 5 6RF fluticasone propionate [Flonase Allergy Relief] 50 mcg/actuation spray,suspension 1 spray intranasal BID Qty: 16 0RF Rx Instructions: administer into each nostril
[2023-02-16 11:41] LABS: Glucose, Whole Blood 407 mg/dL (60-115)
[2023-02-16 12:06] LABS: MANUAL DIFF FLAG NO
[2023-02-16 12:07] LABS: Basophils Absolute Auto 0.1 X10*3/uL (0.0-0.2); Basophils Percent Auto 0.7 % (0-2); Eosinophils Absolute Auto 0.1 X10*3/uL (0.0-0.4); Eosinophils Percent Auto 0.9 % (0-4); Hematocrit 43.9 % (42.0-52.0); Imm Gran Abs Auto 0.04 X10*3/uL (0.00-0.03); Imm Gran Pct Auto 0.6 % (0.0-0.4); Lymphocytes Absolute Auto 1.3 X10*3/uL (1.2-4.9); Lymphocytes Percent Auto 18.8 % (20-40); Mean Corpuscular HGB Conc 31.9 g/dl (31.0-36.0); Mean Corpuscular Hemoglobin 26.2 pg (27.0-33.0); Mean Corpuscular Volume 82.1 fL (80.0-98.0); Mean Platelet Volume 10.2 fL (9.4-12.4); Monocytes Absolute Auto 0.8 X10*3/uL (0.1-1.2); Monocytes Percent Auto 11.8 % (2-11); Neutrophils Absolute Auto 4.7 x10*3/uL (2.0-8.3); Neutrophils Percent Auto 67.2 % (45-73); Platelet Count 216 X10*3/uL (160-400); Red Blood Count 5.35 X10*6/uL (4.60-5.80); Red Cell Distribution Width 13.2 % (11.0-16.0)
[2023-02-16 12:43] LABS: Troponin-I High Sensitivity < 2.7 ng/L (<3.5-35.0)
[2023-02-16 12:48] LABS: Anion Gap 14 (12-20); Blood Urea Nitrogen 12 mg/dL (9-16); Calcium 11.3 mg/dL (8.4-10.2); Carbon Dioxide 25 mmol/L (22-29); Chloride 99 mmol/L (96-108); Creatinine Clr Calc Pharmacy 137.3; Estimated Glomerular Filt Rate > 60; Glucose Random 399 mg/dL (60-115); Potassium 4.1 mmol/L (3.3-5.1); Sodium 134 mmol/L (135-145)
[2023-02-16] MEDS: 0.9 % Sodium Chloride 1,000 ML 999 ML IV ×2 (13:38→15:31)
[2023-02-16] MEDS: Insulin Regular, Human 100 UNIT/ML 3 ML VIAL IVPUSH (13:43)
[2023-02-16 13:53] VITALS: BP 121/77; PULSE 86; RESP 14; TEMP 36.8
[2023-02-16 14:52] LABS: Glucose, Whole Blood 217 mg/dL (60-115)
[2023-02-16 16:03] VITALS: BP 110/71; PULSE 78; O2SAT 100
[2023-02-16 16:11] LABS: Glucose, Whole Blood 197 mg/dL (60-115)
== END 2023-02-16 16:16 | disposition home or self-care (01) ==
PROVIDERS: Physician Assistant; Emergency Provider Emergency Medicine Emergency Medical Services; PCP Internal Medicine
DX: R07.89 Other chest pain (principal); R00.0 Tachycardia, unspecified; E86.0 Dehydration; E11.65 Type 2 diabetes mellitus with hyperglycemia; Z79.899 Other long term (current) drug therapy; Z79.4 Long term (current) use of insulin
CPT/HCPCS: 36415; 80048; 82947; 84484; 85025; 93005; 96361; 96374; 99284; 99285

== ENCOUNTER 2023-02-18 14:47 | Emergency (ER) | payer OTHER, SELFPAY ==
[2023-02-18 15:18] VITALS: BP 152/93; PULSE 100; RESP 18; TEMP 36.7; O2SAT 99; BMI 30.7
--- NOTE | 2023-02-18 15:21 | ED.GENADULT ---
HPI - General Adult General Chief complaint: Skin/Abscess/Foreign Body Stated complaint: rash on buttocks going down to left leg Time Seen by Provider: 02/18/23 16:46 Source: patient, RN notes reviewed and old records reviewed Mode of arrival: ambulatory History of Present Illness HPI narrative: 32-year-old male with a past medical history diabetes, HLD, GERD, presenting to the ED complaining of burning rash to buttock and genital region since yesterday. Reports associated dysuria and discomfort with BMs secondary to burning. Denies new sexual partners, abdominal pain, nausea, vomiting, abdominal pain, fever/chills, hematuria, new exposure/lotion, tick or insect bite. Denies having chickenpox as a child Onset (ago): day(s) Related Data Previous Rx's Medication Instructions Recorded atorvastatin 40 mg tablet 40 mg PO BEDTIME 90 days #90 tabs 09/18/21 cholecalciferol (vitamin D3) 1,250 1,250 mcg PO QWEEK 30 days #5 caps 09/18/21 mcg (50,000 unit) capsule fluticasone propionate 50 1 spray intranasal BID #16 grams 09/18/21 mcg/actuation nasal spray,suspension (Flonase Allergy Relief) insulin lispro 200 unit/mL (3 mL) 10 unit (0.05 mL) subcut TID 90 09/30/21 subcutaneous pen (Humalog #13.5 mL U-200 Insulin) flash glucose scanning reader #1 ea 11/03/21 (FreeStyle Amauri 14 Day [place]) metformin 1,000 mg tablet 1,000 mg PO BID 90 days #180 tabs 09/07/22 omeprazole 20 mg capsule,delayed 20 mg PO DAILY 90 days #90 caps 09/07/22 release flash glucose sensor (FreeStyle #2 ea 12/02/22 Amauri 14 Day Sensor kit) dulaglutide 0.75 mg/0.5 mL 0.75 mg (0.5 mL) subcut QWEEK 30 02/07/23 subcutaneous pen injector days #2.5 mL (Trulicity) oxycodone-acetaminophen 5 mg-325 1 tab PO Q8H PRN pain (scale score 02/18/23 mg tablet (Percocet) 7-10) 3 days #9 tabs prednisone 10 mg tablet 10 mg PO DAILY #20 tabs 02/18/23 valacyclovir 1 gram tablet 1,000 mg PO TID 7 days #21 tabs 02/18/23 (Valtrex) Allergies Allergy/AdvReac Type Severity Reaction Status Date / Time shellfish derived Allergy Unknown UNKNOWN Verified 02/16/23 11:38 [SHELLFISH DERIVED] Review of Systems Review of Systems: Constitutional: No Fever, No Chills ENT/Mouth: No Ear Pain, No Nasal Congestion, No sore throat, No Rhinorrhea, No Swallowing Difficulty Cardiovascular: No Chest Pain, No SOB Respiratory: No Cough, No Sputum, No Wheezing Gastrointestinal: No Nausea, No Vomiting, No Diarrhea, No Constipation, No Abdominal pain Genitourinary: + Dysuria, No Urinary Frequency, No Hematuria, No Urinary Incontinence/retention, No Flank Pain Musculoskeletal: No joint pain, No Myalgias, No Joint Swelling Skin: + Skin Lesions, No rash Neuro: No Weakness, No Numbness, No Paresthesias Yes all other systems are reviewed and are negative Constitutional: Constitutional: Reports as per [facility] Past Medical History Attestation statement: The following information was validated with the patient. Source: old records reviewed Medical History Diabetes mellitus GERD (gastroesophageal reflux disease) Hypovitaminosis D Pure hypercholesterolemia Surgical History History of inguinal hernia repair Family History Family History Father CAD (coronary artery disease) Diabetes Hypertension Mother Diabetes Hypertension Social History Social History Housing: Apartment Alcohol intake: current Alcohol intake frequency: holidays/special occasions only Patient Tobacco Use Status: Never used Tobacco Second Hand Smoke Exposure: No Advance Directives: No Advance Directives Information Provided: No service: No Current occupational status: unemployed and student Physical Exam ED Vital Signs: Vital Signs - 24 hr 02/18/23 15:18 Temperature 98.0 F Pulse Rate 100 Respiratory Rate 18 Blood Pressure 152/93 H Pulse Oximetry 99 Oxygen Delivery Method Room Air BMI result Body Mass Index 30.7 Const Other: Appears uncomfortable, will not sit General: cooperative, healthy appearing and no acute distress Orientation/consciousness: patient oriented x3 Limitations: no limitations HENMT Head: Yes normal to inspection and Yes atraumatic Ears: hearing grossly normal bilaterally General nose exam: Normal external nose present Face and sinus: Yes normal facial exam Eyes General: appearance normal, both eyes and all related structures EOM: EOMs intact bilaterally Neck Neck: Yes normal visual inspection and Yes no meningeal signs Resp Effort & Inspection: normal respiratory effort and no respiratory distress Auscultation: clear to auscultation bilaterally Cardio Rate: regular rate GI Inspection: Yes normal to inspection Palpation (GI): Soft to palpation, nontender, no guarding and not rigid Other: + small vesicular patches with erythematous base noted to right upper buttock extending to perianal area, unilateral, exquisitely tender to light touch. No fluctuance/induration or crepitus. No warmth. Mildly swollen. Skin Wounds: no wounds Neuro General: patient oriented x3, tone normal and no meningeal signs Gait exam (Neuro): Normal gait present Extrem General: Yes normal to inspection Course Course Course Narrative: This is an RME: Additional HPI, ROS, PE not included below will be deferred to primary provider. 32-year-old male, hx diabetes, presenting the emergency department with complaints of rash on genitals and buttocks. States the rash is burning. Unable to visualize due to privacy in triage. Rapid physical examination deferred until seen in the main ER for assessment. -1900--ED care transferred to [facility] pending UA and anticipated discharge Reevaluation(s) Reevaluation #1: Sign-out given to me pending UA, no infection seen in urine. Discussed results with patient. Reiterated discharge instructions. Patient understands and agrees with plan. Patient stable discharge Time: 19:51 Medications Administered Discontinued Medications Generic Name Dose Route Start Last Admin Trade Name Freq PRN Reason Stop Dose Admin Oxycodone HCl 5 mg 02/18/23 18:37 02/18/23 19:12 Oxycodone Hcl Immed Release 5 Mg Tablet PO 02/18/23 18:38 5 mg ONCE ONE Administration Prednisone 60 mg 02/18/23 18:37 02/18/23 19:11 Prednisone 20 Mg Tablet PO 02/18/23 18:38 60 mg ONCE ONE Administration Valacyclovir HCl 1,000 mg 02/18/23 18:37 02/18/23 19:11 Valacyclovir Hcl 1,000 Mg Tablet PO 02/18/23 18:38 1,000 mg ONCE ONE Administration Medical Decision Making Medical Decision Making MDM Narrative: 32-year-old male with a past medical history diabetes, HLD, GERD, presenting to the ED complaining of burning rash to buttock and genital region since yesterday. On exam hypertensive, appears uncomfortable, will not sit, physical exam as above with small vesicular rash with erythematous base to right buttock extending to perianal area. Appears to be in S3 or S4 dermatomal pattern. No appreciable abscess. No open wound, fluctuance/induration. Exquisitely tender to light touch. No evidence of Yadiel's gangrene at this time. Low suspicion for cellulitis, perianal/perirectal abscess, intra-abdominal pathology including appendicitis/diverticulitis. No evidence of thrombosed hemorrhoid Case discussed with the ED attending Dr. Ya who also evaluated patient and is in agreement with suspected Zoster Plan: UA, PO Valtrex, prednisone, and oxycodone Please refer to course for remaining clinical decision making, interpretation of labs/imaging results, and discussions with consultants and/or family members. Differential Diagnosis Differential Diagnoses: The differential diagnosis associated with the presentation includes As above Consult Healthcare Provider Management of the patient was discussed with: Water Sander (ED Attending) Lab Data Labs: Lab Results 02/18/23 Range/Units 19:37 Urine Color Yellow Urine Appearance Clear Urine pH 5.5 (5.0-9.0) Ur Specific [place] 1.025 (1.005-1.025) Urine Protein Trace (Neg-Trace) mg/dL Urine Glucose (UA) >=1000 H (Negative) mg/dL Urine Ketones 15 (Negative) mg/dL Urine Blood Negative (Negative) Urine Nitrite Negative (Negative) Ur Leukocyte Esterase Negative (Negative) Urine RBC 0-2 (0-2) /HPF Urine WBC 0-5 (0-5) /HPF Ur Squamous Epith Cells 0-2 (0-2) /HPF Urine Bacteria None Seen (None Seen) Hyaline Casts 0-2 (0-2) /LPF External Record Review External record reviewed: Inpatient record, Office record, Outpatient record, Prior outpatient labs, Prior outpatient radiology, Primary care record and Outside ED record Tests considered The following testing was considered but not selected: As above Prescription Management I considered prescription management with: Pain Medication, Antiviral and Antibiotic Chronic Conditions Patient?s care impacted by: Diabetes Discharge Plan Discharge Clinical Impression: Herpes zoster Patient Disposition: Home, Self-Care Instructions: Shingles (ED) Additional Instructions: We suspect you have shingles. This is contagious, please avoid elderly, and babies. Were contagious until this crust over Valtrex is antiviral medication please take as prescribed 9 prednisone as a steroid which should help reduce symptoms Percocet is an opiate pain medication, take only when pain is severe for the next 3 days In addition take ibuprofen. Be aware Percocet as Tylenol mixed in do not exceed 4 g of Tylenol in 1 day If symptoms persist or worsen, pain is unbearable you have increasing swelling, redness, open/draining wounds, fever or chills return to the ED YOU SHOULD BE RE-EVALUATED IN 2-3 DAYS Prescriptions: New valacyclovir [Valtrex] 1 gram tablet 1,000 mg PO TID 7 Days Qty: 21 0RF prednisone 10 mg tablet 10 mg PO DAILY Qty: 20 0RF Taper: Prednisone 40 mg daily for 3 Days and 0 Hour 30 mg daily for 3 Days and 0 Hour 20 mg daily for 3 Days and 0 Hour 10 mg daily for 3 Days and 0 Hour Rx Instructions: prednisone 10 mg: take 4 tablets (40 mg) for 2 days; 3 tablets (30 mg) for 2 days; 2 (20mg) tablets for 2 days and then 1 (10mg) tablet for 2 days oxycodone-acetaminophen [Percocet] 5-325 mg tablet 1 tab PO Q8H PRN (Reason: pain (scale score 7-10)) 3 Days Qty: 9 0RF Rx Instructions: Partial Fill upon patient request. No Action Humalog KwikPen Insulin 200 unit/mL (3 mL) insulin pen 10 unit subcut TID 90 Days Qty: 13.5 1RF (DME) FreeStyle Amauri 14 Day [place] Misc See Rx Instructions .Route Qty: 1 3RF Rx Instructions: As directed, With meals, 14 days metformin 1,000 mg tablet 1,000 mg PO BID 90 Days Qty: 180 3RF omeprazole 20 mg capsule,delayed release(DR/EC) 20 mg PO DAILY 90 Days Qty: 90 3RF (DME) FreeStyle Amauri 14 Day Sensor Kit See Rx Instructions .Route Qty: 2 3RF Rx Instructions: As directed Trulicity 0.75 mg/0.5 mL pen injector 0.75 mg subcut QWEEK 30 Days Qty: 2.5 6RF atorvastatin 40 mg tablet 40 mg PO BEDTIME 90 Days Qty: 90 3RF cholecalciferol (vitamin D3) 1,250 mcg (50,000 unit) capsule 1,250 mcg PO QWEEK 30 Days Qty: 5 6RF fluticasone propionate [Flonase Allergy Relief] 50 mcg/actuation spray,suspension 1 spray intranasal BID Qty: 16 0RF Rx Instructions: administer into each nostril Referrals: Rosalinda Winston MD [Primary Care Provider] - 3 days (For re-evaluation)
[2023-02-18] MEDS: valACYclovir HCL 1,000 MG TABLET 1000 MG PO (19:11)
[2023-02-18] MEDS: predniSONE 20 MG TABLET 60 MG PO (19:11)
[2023-02-18] MEDS: oxyCODONE HCl Immed Release 5 MG TABLET PO (19:12)
[2023-02-18 19:43] LABS: Appearance Urine Clear; Color Urine Yellow; Glucose Urine UA >=1000 mg/dL (Negative); Leukocyte Esterase Urine Negative (Negative); Nitrite Urine Negative (Negative); PH 5.5 (5.0-9.0); Specific Gravity - Urine 1.025 (1.005-1.025); UMIC TRIGGER UACC YES; Urine Blood Negative (Negative); Urine Ketones 15 mg/dL (Negative); Urine Protein Trace mg/dL (Neg-Trace)
[2023-02-18 19:48] LABS: Bacteria Urine None Seen (None Seen); Hyaline Casts Urine 0-2 /LPF (0-2); RBC Urine 0-2 /HPF (0-2); Squamous Epithelial Cell Urine 0-2 /HPF (0-2); WBC Urine 0-5 /HPF (0-5)
== END 2023-02-18 20:38 | disposition home or self-care (01) ==
PROVIDERS: Physician Assistant; Emergency Provider Emergency Medicine; PCP Internal Medicine
DX: B02.9 Zoster without complications (principal); E11.9 Type 2 diabetes mellitus without complications; E78.00 Pure hypercholesterolemia, unspecified; Z79.4 Long term (current) use of insulin; Z79.899 Other long term (current) drug therapy
CPT/HCPCS: 81001; 99283

== ENCOUNTER 2023-02-21 13:22 | Emergency (ER) | payer OTHER, SELFPAY ==
[2023-02-21 14:33] VITALS: BP 139/91; PULSE 110; RESP 18; TEMP 36.7; O2SAT 98; BMI 30.9
--- NOTE | 2023-02-21 14:35 | ED_ITS ---
HPI - Skin/Abscess/Foreign Bdy General Chief complaint: Recheck/Abnormal Lab/Rx Stated complaint: shingles check up Time Seen by Provider: 02/21/23 16:55 History of Present Illness HPI narrative: patient was being treated for shingles complains that there are now some new lesions appearing on the left side of his chest and abdomen Denies any headache no fever no confusion no dizziness no numbness no weakness, no runny nose no cough, no other complaints Related Data Previous Rx's Medication Instructions Recorded atorvastatin 40 mg tablet 40 mg PO BEDTIME 90 days #90 tabs 09/18/21 cholecalciferol (vitamin D3) 1,250 1,250 mcg PO QWEEK 30 days #5 caps 09/18/21 mcg (50,000 unit) capsule fluticasone propionate 50 1 spray intranasal BID #16 grams 09/18/21 mcg/actuation nasal spray,suspension (Flonase Allergy Relief) insulin lispro 200 unit/mL (3 mL) 10 unit (0.05 mL) subcut TID 90 09/30/21 subcutaneous pen (Humalog KwikPen days #13.5 mL U-200 Insulin) flash glucose scanning reader #1 ea 11/03/21 (FreeStyle Amauri 14 Day [place]) metformin 1,000 mg tablet 1,000 mg PO BID 90 days #180 tabs 09/07/22 omeprazole 20 mg capsule,delayed 20 mg PO DAILY 90 days #90 caps 09/07/22 release flash glucose sensor (FreeStyle #2 ea 12/02/22 Amauri 14 Day Sensor kit) dulaglutide 0.75 mg/0.5 mL 0.75 mg (0.5 mL) subcut QWEEK 30 02/07/23 subcutaneous pen injector days #2.5 mL (Trulicity) oxycodone-acetaminophen 5 mg-325 1 tab PO Q8H PRN pain (scale score 02/18/23 mg tablet (Percocet) 7-10) 3 days #9 tabs prednisone 10 mg tablet 10 mg PO DAILY #20 tabs 02/18/23 valacyclovir 1 gram tablet 1,000 mg PO TID 7 days #21 tabs 02/18/23 (Valtrex) oxycodone 5 mg tablet 5 mg PO Q6H PRN pain #14 tabs 02/21/23 Allergies Allergy/AdvReac Type Severity Reaction Status Date / Time shellfish derived Allergy Unknown UNKNOWN Verified 02/16/23 11:38 [SHELLFISH DERIVED] [facility] Past Medical History Source: nursing notes reviewed Medical History Diabetes mellitus GERD (gastroesophageal reflux disease) Hypovitaminosis D Pure hypercholesterolemia Surgical History History of inguinal hernia repair Family History Family History Father CAD (coronary artery disease) Diabetes Hypertension Mother Diabetes Hypertension Social History Social History Housing: Apartment Alcohol intake: current Alcohol intake frequency: does not drink Patient Tobacco Use Status: Never used Tobacco Smoked in Last 30 Days: No Second Hand Smoke Exposure: No Use of substances other than those prescribed or required for medical reasons: No Advance Directives: No Advance Directives Information Provided: No service: No Current occupational status: unemployed and student Physical Exam Vital Signs: Vital Signs: Last Vital Signs Temp 98.6 F 02/21/23 17:57 Pulse 89 02/21/23 17:57 Resp 18 02/21/23 17:57 BP 136/79 02/21/23 17:57 Pulse Ox 99 02/21/23 17:57 O2 Del Method Room Air 02/21/23 17:57 BMI result Body Mass Index 30.9 general appearance no distress Eyes no redness or discharge The pharynx is clear no lesions no redness no swelling no exudate voice normal, membranes moist Neck is supple Chest clear to auscultation bilateral Heart no murmur Extremities range of motion x4 Neuro gait and balance are normal, interaction conversation expression normal, motor 5/5 x4, cranial nerves 2-12 intact as tested Skin exam the original lesions are still seen and appear papular and somewhat crusted on inner thigh on the left side On chest wall there are isolated individual papules, there are no clusters, there is no erythematous base Course Course Course Narrative: This is an RME: Additional HPI, ROS, PE not included below will be deferred to primary provider. Patient is a 32-year-old male with past medical history of diabetes presenting to emergency department for evaluation of a rash. Patient was seen in the emergency department 3 days ago 02/18/2023 and diagnosed with herpes zoster of the S3 or S4 dermatome. He was prescribed valacyclovir, prednisone, and Percocet. This has helped the pain some though it is still present. He reports that the following day he developed lesions to the anterior chest and back bilaterally. He states that he came to emergency department today because he was advised he should be re-evaluated in 2-3 days. Reports subjective fever, but normal temperature when checked. Denies headache, dizziness, neck stiffness, chest pain, or shortness of breath. He is mildly tachycardic but afebrile. Reviewed this case with ED attending Dr. Fitzgerald, will obtain basic labs at culture Case was discussed with Dr. marmolejo who came and saw the patient and reviewed the case and recommended patient continue the Valtrex, it may have been started too late to fully arrest the disease, but as patient has no fever and is well- appearing he is to be discharged The isolated papules on the chest wall many not be an extension of the shingles infection as each papule is isolated and there at multiple dermatomes on the brandie st but unlike most shingles I have seen there is no clustering there is no erythematous base I did try to culture 1 of them but there was no fluid but it was sent for herpes culture Well-appearing patient with no other complaint was discharged Medical Decision Making Lab Data 02/21/23 14:56 02/21/23 14:56 Labs: Lab Results 02/21/23 02/21/23 02/21/23 Range/Units 14:56 14:56 15:58 WBC 7.4 (4.8-10.8) X10*3/uL RBC 5.31 (4.60-5.80) X10*6/uL Hgb 13.9 L (14.0-18.0) g/dl Hct 42.4 (42.0-52.0) % MCV 79.8 L (80.0-98.0) fL MCH 26.2 L (27.0-33.0) pg MCHC 32.8 (31.0-36.0) g/dl RDW 13.2 (11.0-16.0) % Plt Count 266 (160-400) X10*3/uL MPV 11.0 (9.4-12.4) fL Immature Gran % (Auto) 0.3 (0.0-0.4) % Neut % (Auto) 74.9 H (45-73) % Lymph % (Auto) 20.9 (20-40) % [place] % (Auto) 3.5 (2-11) % Eos % (Auto) 0.1 (0-4) % Baso % (Auto) 0.3 (0-2) % Lymph # (Auto) 1.6 (1.2-4.9) X10*3/uL [place] # (Auto) 0.3 (0.1-1.2) X10*3/uL Eos # (Auto) 0.0 (0.0-0.4) X10*3/uL Baso # (Auto) 0.0 (0.0-0.2) X10*3/uL Abs Immat Gran (auto) 0.02 (0.00-0.03) X10*3/uL Absolute Neuts (auto) 5.6 (2.0-8.3) x10*3/uL Absolute Nucleated RBC 0.000 (0.0-0.012) X10*3/uL Nucleated RBC % (auto) 0.0 (0.0-0.2) /100WBC Smear Tech's Comments VERIFIED Sodium 136 (135-145) mmol/L Potassium 4.7 (3.3-5.1) mmol/L Chloride 98 (96-108) mmol/L Carbon Dioxide 26 (22-29) mmol/L Anion Gap 17 (12-20) BUN 17 H (9-16) mg/dL Creatinine 0.96 (0.5-1.4) mg/dL Estim Creat Clear Calc 115.1 Estimated GFR > 60 POC Glucose 355 H* (60-115) mg/dL Random Glucose 429 H* (60-115) mg/dL Calcium 10.8 H (8.4-10.2) mg/dL Total Bilirubin 1.9 H (0.0-1.0) mg/dL AST 15 (5-37) U/L ALT 24 (0-40) U/L Alkaline Phosphatase 86 (39-117) U/L Total Protein 7.7 (6.5-8.0) g/dL Albumin 4.6 (3.5-5.0) g/dL HSV Culture & Type 02/21/23 02/21/23 Range/Units 19:09 19:11 WBC (4.8-10.8) X10*3/uL RBC (4.60-5.80) X10*6/uL Hgb (14.0-18.0) g/dl Hct (42.0-52.0) % MCV (80.0-98.0) fL MCH (27.0-33.0) pg MCHC (31.0-36.0) g/dl RDW (11.0-16.0) % Plt Count (160-400) X10*3/uL MPV (9.4-12.4) fL Immature Gran % (Auto) (0.0-0.4) % Neut % (Auto) (45-73) % Lymph % (Auto) (20-40) % [place] % (Auto) (2-11) % Eos % (Auto) (0-4) % Baso % (Auto) (0-2) % Lymph # (Auto) (1.2-4.9) X10*3/uL [place] # (Auto) (0.1-1.2) X10*3/uL Eos # (Auto) (0.0-0.4) X10*3/uL Baso # (Auto) (0.0-0.2) X10*3/uL Abs Immat Gran (auto) (0.00-0.03) X10*3/uL Absolute Neuts (auto) (2.0-8.3) x10*3/uL Absolute Nucleated RBC (0.0-0.012) X10*3/uL Nucleated RBC % (auto) (0.0-0.2) /100WBC Smear Tech's Comments Sodium (135-145) mmol/L Potassium (3.3-5.1) mmol/L Chloride (96-108) mmol/L Carbon Dioxide (22-29) mmol/L Anion Gap (12-20) BUN (9-16) mg/dL Creatinine (0.5-1.4) mg/dL Estim Creat Clear Calc Estimated GFR POC Glucose 271 H (60-115) mg/dL Random Glucose (60-115) mg/dL Calcium (8.4-10.2) mg/dL Total Bilirubin (0.0-1.0) mg/dL AST (5-37) U/L ALT (0-40) U/L Alkaline Phosphatase (39-117) U/L Total Protein (6.5-8.0) g/dL Albumin (3.5-5.0) g/dL HSV Culture & Type SEE NOTE Discharge Plan Discharge Clinical Impression: Herpes zoster, Rash Patient Disposition: Home, Self-Care Additional Instructions: the case was discussed with attending physician in the ER who believes that the lesions may be spreading as the Valtrex may have been started too late to fully stop the disease Right now you are well-appearing and to not have a fever, You will have to return for any change or worse condition especially worsening headache fever confusion any worse condition or any concerns If possible follow with primary doctor next week for possible referral to a specialist Prescriptions: New oxycodone 5 mg tablet 5 mg PO Q6H PRN (Reason: pain) Qty: 14 0RF Rx Instructions: Partial Fill upon patient request. No Action Humalog KwikPen Insulin 200 unit/mL (3 mL) insulin pen 10 unit subcut TID 90 Days Qty: 13.5 1RF (DME) FreeStyle Amauri 14 Day [place] Misc See Rx Instructions .Route Qty: 1 3RF Rx Instructions: As directed, With meals, 14 days metformin 1,000 mg tablet 1,000 mg PO BID 90 Days Qty: 180 3RF omeprazole 20 mg capsule,delayed release(DR/EC) 20 mg PO DAILY 90 Days Qty: 90 3RF (DME) FreeStyle Amauri 14 Day Sensor Kit See Rx Instructions .Route Qty: 2 3RF Rx Instructions: As directed Trulicity 0.75 mg/0.5 mL pen injector 0.75 mg subcut QWEEK 30 Days Qty: 2.5 6RF valacyclovir [Valtrex] 1 gram tablet 1,000 mg PO TID 7 Days Qty: 21 0RF prednisone 10 mg tablet 10 mg PO DAILY Qty: 20 0RF Taper: Prednisone 40 mg daily for 3 Days and 0 Hour 30 mg daily for 3 Days and 0 Hour 20 mg daily for 3 Days and 0 Hour 10 mg daily for 3 Days and 0 Hour Rx Instructions: prednisone 10 mg: take 4 tablets (40 mg) for 2 days; 3 tablets (30 mg) for 2 days; 2 (20mg) tablets for 2 days and then 1 (10mg) tablet for 2 days oxycodone-acetaminophen [Percocet] 5-325 mg tablet 1 tab PO Q8H PRN (Reason: pain (scale score 7-10)) 3 Days Qty: 9 0RF Rx Instructions: Partial Fill upon patient request. atorvastatin 40 mg tablet 40 mg PO BEDTIME 90 Days Qty: 90 3RF cholecalciferol (vitamin D3) 1,250 mcg (50,000 unit) capsule 1,250 mcg PO QWEEK 30 Days Qty: 5 6RF fluticasone propionate [Flonase Allergy Relief] 50 mcg/actuation spray,suspe nsion 1 spray intranasal BID Qty: 16 0RF Rx Instructions: administer into each nostril Stand Alone Forms: Work/School Release Interventions: ED Discharge Assessment Last Done: 02/21/23 19:17 Discharge Date/Time: 02/21/23 19:18
[2023-02-21 15:06] LABS: Hemoglobin 13.9 g/dl (14.0-18.0); Imm Gran Abs Auto 0.02 X10*3/uL (0.00-0.03); Imm Gran Pct Auto 0.3 % (0.0-0.4); MANUAL DIFF FLAG SCAN; Red Cell Distribution Width 13.2 % (11.0-16.0); SCAN SMEAR FLAG 1
[2023-02-21 15:24] LABS: Alanine Aminotransferase 24 U/L (0-40); Albumin Level 4.6 g/dL (3.5-5.0); Alkaline Phosphatase 86 U/L (39-117); Anion Gap 17 (12-20); Aspartate Amino Transferase 15 U/L (5-37); Bilirubin Total 1.9 mg/dL (0.0-1.0); Blood Urea Nitrogen 17 mg/dL (9-16); Calcium 10.8 mg/dL (8.4-10.2); Carbon Dioxide 26 mmol/L (22-29); Chloride 98 mmol/L (96-108); Creatinine Clr Calc Pharmacy 115.1; Estimated Glomerular Filt Rate > 60; Glucose Random 429 mg/dL (60-115); Potassium 4.7 mmol/L (3.3-5.1); Sodium 136 mmol/L (135-145); Total Protein 7.7 g/dL (6.5-8.0)
[2023-02-21 15:29] LABS: Basophils Percent Auto 0.3 % (0-2); Eosinophils Percent Auto 0.1 % (0-4); Hematocrit 42.4 % (42.0-52.0); Lymphocytes Absolute Auto 1.6 X10*3/uL (1.2-4.9); Lymphocytes Percent Auto 20.9 % (20-40); Mean Corpuscular HGB Conc 32.8 g/dl (31.0-36.0); Mean Corpuscular Hemoglobin 26.2 pg (27.0-33.0); Mean Corpuscular Volume 79.8 fL (80.0-98.0); Monocytes Absolute Auto 0.3 X10*3/uL (0.1-1.2); Monocytes Percent Auto 3.5 % (2-11); Neutrophils Absolute Auto 5.6 x10*3/uL (2.0-8.3); Neutrophils Percent Auto 74.9 % (45-73); Platelet Count 266 X10*3/uL (160-400); Red Blood Count 5.31 X10*6/uL (4.60-5.80); White Blood Count 7.4 X10*3/uL (4.8-10.8)
[2023-02-21 15:36] LABS: SLIDE REVIEW VERIFIED
[2023-02-21 16:02] VITALS: BP 128/91; PULSE 100; RESP 16; O2SAT 96
[2023-02-21 16:02] LABS: Glucose, Whole Blood 355 mg/dL (60-115)
[2023-02-21 17:57] VITALS: BP 136/79; PULSE 89; RESP 18; TEMP 37; O2SAT 99
[2023-02-21 19:19] LABS: Glucose, Whole Blood 271 mg/dL (60-115)
== END 2023-02-21 19:18 | disposition home or self-care (01) ==
PROVIDERS: Nurse Practitioner Family; Physician Assistant Medical; Emergency Provider Internal Medicine; PCP Internal Medicine
DX: R21 Rash and other nonspecific skin eruption (principal); B02.9 Zoster without complications; E11.9 Type 2 diabetes mellitus without complications; Z79.899 Other long term (current) drug therapy; Z79.4 Long term (current) use of insulin
CPT/HCPCS: 36415; 80053; 82947; 85025; 87255; 99284

== ENCOUNTER 2023-04-09 08:49 | Outpatient (AMB) | payer OTHER, SELFPAY ==
--- NOTE | 2023-04-09 08:50 | A.OFFPC_ITS ---
Vital Signs 04/09/23 08:51 Height 5 ft 6 in Weight 187 lb 6 oz BMI 30.2 BP 118/82 Blood Pressure Location Lt brachial Position Standing Pulse 101 H Pulse Source Pulse Oximeter Pulse Oximetry (%) 98 Oxygen Delivery Method Room Air Intake Visit Reasons: Back/lower body nerve pain Gift Shop Manager Required: No Accompanied by: Self / Same As Patient Allergies shellfish derived [SHELLFISH DERIVED] Allergy (Unknown, Verified 04/09/23 09:13) UNKNOWN Medication List - Last Reconciled 04/09/23 by SEVERINO Hirsch atorvastatin 40 mg PO BEDTIME 90 days cholecalciferol (vitamin D3) 1,250 mcg PO QWEEK 30 days dulaglutide (Trulicity) 0.75 mg (0.5 mL) subcut QWEEK 30 days flash glucose scanning reader ([employer] Amauri 14 Day [place]) As directed, With meals, 14 days flash glucose sensor (FreeStyle Amauri 14 Day Sensor kit) As directed fluticasone propionate 50 mcg/actuation (Flonase Allergy Relief) 1 spray intranasal BID insulin lispro (Humalog KwikPen U-200 Insulin) 10 units (0.05 mL) subcut TID 90 days metformin 1,000 mg PO BID 90 days omeprazole 20 mg PO DAILY 90 days Tobacco use date assessed: 04/09/23 Dental Screening Dental Screen Date: 04/09/23 Did you have a dental visit in the last 12 months?: No Did you have a dental problem in the last 6 months where you did not have access to dental care?: No Was dental information given to patient?: Patient has dentist HPI HPI Comments History of Present Illness Details 32-year-old male past medical history significant for type 2 diabetes mellitus, GERD, hypercholesteremia. Review of the notes patient was in the emergency room on 02/21/2023 was diagnosed with shingles at the S3, S4 dermatome patient was treated with valacyclovir, prednisone and Percocet. Patient presents today for pain, patient reports nerve pain groin, left buttock and back. Patient states tries motrin tyelonol, no relief. Denies acute injury to back. [facility] Medical History Diabetes mellitus GERD (gastroesophageal reflux disease) Hypovitaminosis D Pure hypercholesterolemia Surgical History History of inguinal hernia repair Family History Father CAD (coronary artery disease) Diabetes Hypertension Mother Diabetes Hypertension Social History Housing: Apartment Alcohol intake: current Alcohol intake frequency: does not drink Patient Tobacco Use Status: Never used Tobacco Second Hand Smoke Exposure: No service: No Current occupational status: unemployed and student Cognitive needs: No Hearing needs: No Vision needs: No Questionnaire PHQ-9 Over the last 2 weeks, how often have you been bothered by any of the following problems? 1. Little interest or pleasure in doing things: not at all 2. Feeling down, depressed, or hopeless: not at all 3. Trouble falling or staying asleep, or sleeping too much: not at all 4. Feeling tired or having little energy: not at all 5. Poor appetite or overeating: not at all 6. Feeling bad about yourself - or that you are a failure or have let yourself or your family down: not at all 7. Trouble concentrating on things, such as reading the newspaper or watching television: not at all 8. Moving or speaking so slowly that other people could have noticed. Or the opposite - being so fidgety or restless that you have been moving around a lot more than usual: not at all 9. Thoughts that you would be better off or of hurting yourself in some way: not at all Total score: 0 Depression Screening Interpretation: Negative Source: Developed by Drs. Lio Rizvi, Daina Cruz, Pieter Lopez and colleagues, with an educational barrington from [employer]. Thrive Questionnaire Date Thrive assessed: 04/09/23 I am a: Patient What is your living situation today?: I have a steady place to live Within the past 12 months, did the food you bought not last and you didn't have the money to get more?: Never true Within the past 12 months, did you worry whether your food would run out before you got money to buy more?: Never true Do you have trouble paying for medicines?: No Do you have trouble getting transportation to medical appointments?: No Do you have trouble paying your heating and electricity bill?: No Do you have trouble taking care of your child, family member or friend?: No Do you have trouble with day-to-day activities such as bathing, preparing meals, shopping, managing finances, etc.?: No Are you currently unemployed and looking for a job?: No Are you interested in more education?: No Please select the resources that you would like help with: None Currently or been in a relationship where the following occur: no concerns reported AUDIT C Alcohol Use Questionnaire (AUDIT-C) 1. How often do you have a drink containing alcohol?: Monthly or less 2. How many drinks containing alcohol do you have on a typical day when you are drinking?: 1 or 2 3. How often do you have six or more drinks on one occasion?: Never Total Score: 1 Score Reviewed/Action Taken: Yes (reviewed, no action needed) LINO-7 AMB Questionnaire LINO-7 Date LINO - 7 assessed: 04/09/23 Feeling nervous, anxious, or on edge: 0 = Not at all Not being able to stop or control worryin = Not at all Worrying too much about different things: 0 = Not at all Trouble relaxin = Not at all Being so restless that it is hard to sit still: 0 = Not at all Becoming easily annoyed or irritable: 0 = Not at all Feeling afraid as if something awful might happen: 0 = Not at all Total LINO-7 score (0-4 normal; 5-9 mild; 10-14 moderate; 15-21 severe): 0 Source: Developed by Drs. Lio Rizvi, Daina Cruz, Pieter Lopez and colleagues, with an educational barrington from [employer]. LINO-7 Assessment Billing LINO-7 Assessment Tool: LINO-7 Assessment 82721 Review of Systems Const Denies chills, Denies fatigue, Denies fever(s) and Denies poor appetite Eyes Denies no additional complaints ENT Reports Normal hearing present Card Denies chest pain, Denies syncope, Denies rapid heart rate and Denies dyspnea Resp Denies cough and Denies dyspnea GI Denies change in stool character, Denies constipation, Denies diarrhea, Denies nausea and Denies vomiting Denies dysuria, Denies urinary frequency and Denies urinary urgency Neuro Reports Normal hearing present, Denies confusion and Denies syncope Psych Denies confusion Endo Denies fatigue Physical exam (Primary Care) Vital Signs: Last Vital Signs Pulse 101 H 04/09/23 08:51 BP 118/82 04/09/23 08:51 Pulse Ox 98 04/09/23 08:51 Oxygen Delivery Method Room Air 04/09/23 08:51 BMI result Body Mass Index 30.2 Tobacco/Smoking Status: Tobacco use Status Tobacco use date assessed 04/09/23 04/09/23 08:56 Patient Tobacco Use Status Never used Tobacco 04/09/23 08:56 PHQ-9: PHQ-9 Score PHQ-9: Total score 0 04/09/23 09:10 Depression Screening Interpretation: Negative Thrive Assessment: Date of Thrive Assessment Date Thrive assessed 04/09/23 04/09/23 08:56 Currently or been in a relationship where the following occur: no concerns reported Const General: No confusion Orientation/consciousness: No confusion HENMT Head: Yes normocephalic and Yes atraumatic Eyes Conjunctivae: conjunctivae normal Chest Chest palpation & inspection: normal inspection of the chest Resp Effort & Inspection: normal respiratory effort Auscultation: clear to auscultation bilaterally, no crackles, no rhonchi and no wheezes Cardio Rate: regular rate Rhythm: regular rhythm Heart sounds: S1 normal heart sound present and S2 normal heart sound present GI Inspection: Yes normal to inspection Neuro General: No confusion Cranial nerves: Yes Normal hearing present Extrem General: No edema Assessment and Plan Assessment & Plan (1) Post herpetic neuralgia: Code(s): B02.29 - Other postherpetic nervous system involvement Plan: Symptoms consitentent with post herpetic neuralgia from recent shingles ingection. Will prescribe lidoderm patch to apply to left buttocks and gabapetin 300mg at bedtime. (2) Diabetes mellitus: Code(s): E11.9 - Type 2 diabetes mellitus without complications Plan: Continue on current medications, Requested refills sent. Patient educated to decrease the amount of carbohydrate intake such as pasta, bread, rice and potatoes are all sugar in addition to the sweet stuff. Remember that fruits are good but they also have sugar. Hemoglobin A1c goal of less than 6.5% (3) Pure hypercholesterolemia: Code(s): E78.00 - Pure hypercholesterolemia, unspecified Plan: Continue on statin follow low cholesterol diet. Plan Follow up in 3 months, Fasting labs ordered prior to appointment. Orders: Orders 2 Comprehensive [place]. Panel Fast 3 Months E11.9 - Type 2 diabetes mellitus without complications Lipid Panel 3 Months E11.9 - Type 2 diabetes mellitus without complications Complete Blood Count Auto Diff 3 Months Z13.0 - Encounter for screening for diseases of the blood and blood-forming organs and certain disorders involving the immune mechanism Hemoglobin A1c 3 Months E11.9 - Type 2 diabetes mellitus without complications Medications: New lidocaine 5% (Lidoderm) leave on most painful area for up to 12 hrs 1 patch topical DAILY 30 ea 0RF B02.29 - Other postherpetic nervous system involvement gabapentin 300 mg PO BEDTIME 20 caps 0RF B02.29 - Other postherpetic nervous system involvement Refilled atorvastatin 40 mg PO BEDTIME 90 days 90 tabs 3RF E78.00 - Pure hypercholesterolemia, unspecified dulaglutide (Trulicity) 0.75 mg (0.5 mL) subcut QWEEK 30 days 2.5 mL 6RF E11.9 - Type 2 diabetes mellitus without complications fluticasone propionate 50 mcg/actuation (Flonase Allergy Relief) administer into each nostril 1 spray intranasal BID 16 grams 0RF J30.9 - Allergic rhinitis, unspecified metformin 1,000 mg PO BID 90 days 180 tabs 3RF omeprazole 20 mg PO DAILY 90 days 90 caps 3RF insulin lispro (Humalog KwikPen U-200 Insulin) 10 units (0.05 mL) subcut TID 90 days 13.5 mL 1RF Coding Level of Care Code Est Pt Level 4 (49525) Diagnoses Post herpetic neuralgia B02.29 Diabetes mellitus E11.9 Pure hypercholesterolemia E78.00 Additional Codes LINO-7 Assessment Billing - LINO-7 Assessment Tool: LINO-7 Assessment 61073 ([id number]) PHQ-9 - 68417 - PHQ-9 Billing: Y ([id number])
[2023-04-09 08:51] VITALS: BP 118/82; PULSE 101; O2SAT 98; BMI 30.2
== END 2023-04-09 09:47 | disposition home or self-care (01) ==
PROVIDERS: PCP Internal Medicine; Visit Provider Nurse Practitioner Family
DX: B02.29 Other postherpetic nervous system involvement (principal); E11.9 Type 2 diabetes mellitus without complications; E78.00 Pure hypercholesterolemia, unspecified
CPT/HCPCS: 99214

== ENCOUNTER 2023-05-06 12:16 | Outpatient (AMB) | payer OTHER, SELFPAY ==
--- NOTE | 2023-05-06 12:54 | AM.OFFWIN_ITS ---
Intake Vital Signs 05/06/23 12:57 Weight 153 lb BP 122/80 Blood Pressure Location Lt brachial Position Sitting Pulse 101 H Pulse Source Pulse Oximeter Pulse Oximetry (%) 98 Oxygen Delivery Method Room Air Intake Visit Reasons: EST/Postherpetic neuralgia Intake Note: Patient here because he had shingles a february 16 and he is for a lot of nerve pain in the areas he had shingles in. Having a hard time sleeping, getting comfortable in any way. Patient Tobacco Use Status: Never used Tobacco Allergies shellfish derived [SHELLFISH DERIVED] Allergy (Unknown, Verified 05/06/23 12:59) UNKNOWN Do you need a note to return to daycare/school/sports/work: Yes HPI HPI Comments History of Present Illness Details 32-year-old male presents for post herpetic neuralgia. Patient had shingles back in January has been experiencing pain in burning sensation as well as and pain with light touch in the areas where his rash was present. He is taking gabapentin 300 mg twice daily. And still having pain. 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 [facility] Medical History Diabetes mellitus GERD (gastroesophageal reflux disease) Hypovitaminosis D Pure hypercholesterolemia Surgical History History of inguinal hernia repair Family History Father CAD (coronary artery disease) Diabetes Hypertension Mother Diabetes Hypertension Social History Housing: Apartment Alcohol intake: current Alcohol intake frequency: does not drink Patient Tobacco Use Status: Never used Tobacco Second Hand Smoke Exposure: No service: No Current occupational status: unemployed and student Cognitive needs: No Hearing needs: No Vision needs: No Review of Systems Neuro Details: nerve pain Physical Exam Vital Signs: Last Vital Signs Pulse 101 H 05/06/23 12:57 BP 122/80 05/06/23 12:57 Pulse Ox 98 05/06/23 12:57 Oxygen Delivery Method Room Air 05/06/23 12:57 Const General: no acute distress and alert Skin General skin exam: no rashes or lesions noted Assessment & Plan Assessment & Plan (1) Post herpetic neuralgia: Code(s): B02.29 - Other postherpetic nervous system involvement Plan patient symptoms consistent with post herpetic neuralgia. Patient on low dose of gabapentin at 600 mg daily. Discussed with patient discussed that he can increase by 300 mg every 3 days until he reaches a 200 mg. Recommend patient increase 3 mg every 3 days until he reaches 1200 mg and then discuss with his primary. Will offer prescription refill of the assist and slowly titrating up. Discharge instructions, follow up and treatment are discussed with patient in my usual fashion. Alternatives in treatment are also discussed. The patient will return for worsening symptoms or as needed. Advised that any labs/imaging ordered will be followed up on and contact made if further treatment needed. Counseled that patient's condition may require further evaluation and/or treatment. Symptoms of concern for worsening disorder discussed in detail in my customary manner. Patient does verbalize understanding of the plan, there are no apparent barriers to communication. The patient is given the opportunity to ask questions and have them answered to his/her satisfaction Medications: New gabapentin 100 mg PO TID 30 caps 0RF Patient Instructions: will be slowly increasing your gabapentin as you on a lower dose. You can increase your dosage by 300 mg every 3 days. starting Monday 05/07 take an additional 300 mg. That means 300 mg in the morning, 300 mg in the afternoon, and 300 mg in the evening. If your pain has improved you may continue on that dose. If your pain is not improved on Thursday 05/10 you may take 400 mg in the morning 400 mg in the afternoon and 400 mg in the evening for total of 1200 mg daily. Stay on that dose for 3 days if your pain is not improved reach out to your primary care provider. Coding Level of Care Code Est Pt Level 3 (93947) Diagnoses Post herpetic neuralgia B02.29
[2023-05-06 12:57] VITALS: BP 122/80; PULSE 101; O2SAT 98
== END 2023-05-06 13:27 | disposition home or self-care (01) ==
PROVIDERS: PCP Internal Medicine; Visit Provider Physician Assistant
DX: B02.29 Other postherpetic nervous system involvement (principal)
CPT/HCPCS: 99213

== ENCOUNTER 2023-11-15 16:02 | Emergency (ER) | payer OTHER, SELFPAY ==
--- NOTE | 2023-11-15 16:37 | ED_ITS ---
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 never had endoscopy Related Data Previous Rx's Medication Instructions Recorded cholecalciferol (vitamin D3) 1,250 1,250 mcg PO QWEEK 30 days #5 caps 09/18/21 mcg (50,000 unit) capsule flash glucose scanning reader #1 ea 11/03/21 (FreeStyle Amauri 14 Day [place]) atorvastatin 40 mg tablet 40 mg PO BEDTIME 90 days #90 tabs 04/09/23 fluticasone propionate 50 1 spray intranasal BID #16 grams 04/09/23 mcg/actuation nasal spray,suspension (Flonase Allergy Relief) insulin lispro 200 unit/mL (3 mL) 10 unit (0.05 mL) subcut TID 90 04/09/23 subcutaneous pen (Humalog KwikPen days #13.5 mL U-200 Insulin) lidocaine 5 % topical patch 1 patch topical DAILY #30 ea 04/09/23 (Lidoderm) metformin 1,000 mg tablet 1,000 mg PO BID 90 days #180 tabs 04/09/23 omeprazole 20 mg capsule,delayed 20 mg PO DAILY 90 days #90 caps 04/09/23 release gabapentin 100 mg capsule 100 mg PO TID #30 caps 05/06/23 flash glucose sensor (FreeStyle #2 ea 08/17/23 Amauri 14 Day Sensor kit) gabapentin 300 mg capsule 300 mg PO BID 30 days #60 caps 08/19/23 dulaglutide 0.75 mg/0.5 mL 0.75 mg (0.5 mL) subcut QWEEK 30 10/19/23 subcutaneous pen injector days #2.5 mL (Trulicity) sucralfate 1 gram tablet 1 g PO BID #60 tabs 11/16/23 Allergies Allergy/AdvReac Type Severity Reaction Status Date / Time shellfish derived Allergy Unknown UNKNOWN Verified 11/15/23 16:38 [SHELLFISH DERIVED] Review of Systems 2 Review of Systems: Yes all other systems are reviewed and are negative [facility] Past Medical History Medical History Diabetes mellitus GERD (gastroesophageal reflux disease) Hypovitaminosis D Pure hypercholesterolemia Surgical History History of inguinal hernia repair Family History Family History Father CAD (coronary artery disease) Diabetes Hypertension Mother Diabetes Hypertension Social History Social History Housing: Apartment Alcohol intake: current Alcohol intake frequency: does not drink Patient Tobacco Use Status: Never used Tobacco Smoked in Last 30 Days: No Second Hand Smoke Exposure: No Use of substances other than those prescribed or required for medical reasons: No Advance Directives: No Advance Directives Information Provided: No service: No Current occupational status: unemployed and student Cognitive needs: No Hearing needs: No Vision needs: No Physical Exam ED Vital Signs: Vital Signs - 24 hr 11/15/23 16:38 11/15/23 19:15 11/15/23 23:06 Temperature 98.6 F 97.9 F 97.7 F Pulse Rate 68 66 60 Respiratory Rate 18 16 16 Blood Pressure 118/76 101/71 114/71 Pulse Oximetry 100 97 100 Oxygen Delivery Method Room Air Room Air Room Air 11/15/23 23:06 11/16/23 01:15 11/16/23 02:06 Temperature 97.7 F 98.6 F 98.6 F Pulse Rate 60 84 84 Respiratory Rate 16 16 16 Blood Pressure 114/71 122/86 122/86 Pulse Oximetry 100 100 100 Oxygen Delivery Method Room Air Room Air BMI result Body Mass Index 29.0 Appearance: Alert. Oriented X3. No acute distress. Eyes: No pallor or icterus ENT: Pharynx normal. Oral Mucosa moist Neck: Normal inspection. Neck supple. CVS: Normal heart rate and rhythm. Pulses normal. Respiratory: No respiratory distress. Equal air entry bilateral, no wheezing/rales/rhonchi Abdomen: Soft and tenderness in epigastric area no rebound tenderness no right upper quadrant tenderness no guarding Bowel sounds are present, no mass palpable, no CVA tenderness Skin: Skin warm and dry. Normal skin color. Normal skin turgor. Extremities: No lower extremity edema. No calf tenderness Neuro: Oriented X 3. No motor deficit. Course Course Course Narrative: RME performed by Kellie Powell PA-C. Patient is a 33 year old assigned male at presenting to the emergency department with abdominal pain. Detailed physical exam and review of systems are deferred to the educational speech language clinician. Labs ordered. Patient placed back in the waiting room pending room availability and results. Medications Administered Discontinued Medications Generic Name Dose Route Start Last Admin Trade Name Meek PRN Reason Stop Dose Admin Al Hydroxide/Mg Hydroxide 30 ml 11/16/23 00:33 11/16/23 01:06 Magnesium Hydrox/Alum Hydrox 30 Ml Oral.Susp PO 11/16/23 00:34 30 ml ONCE ONE Administration Medical Decision Making Medical Decision Making [facility] Narrative: Patient's labs are stable with chronic pain likely has chronic gastritis on Prilosec 20 mg bloating to the dose to 40 mg advised to follow with beaming machine operator will check lipase to rule out pancreatitis Differential Diagnosis Differential Diagnoses: The differential diagnosis associated with the presentation includes Gastritis/GERD/pancreatitis Lab Data [facility] Lab Attestation statement: I reviewed the patient's lab results. 11/15/23 17:17 11/15/23 17:17 Labs: Lab Results 11/15/23 Range/Units 17:17 WBC 7.0 (4.8-10.8) X10*3/uL RBC 4.95 (4.60-5.80) X10*6/uL Hgb 13.2 L (14.0-18.0) g/dl Hct 41.0 L (42.0-52.0) % MCV 82.8 (80.0-98.0) fL MCH 26.7 L (27.0-33.0) pg MCHC 32.2 (31.0-36.0) g/dl RDW 13.3 (11.0-16.0) % Plt Count 252 (160-400) X10*3/uL MPV 10.4 (9.4-12.4) fL Immature Gran % (Auto) 0.3 (0.0-0.4) % Neut % (Auto) 58.7 (45-73) % Lymph % (Auto) 31.6 (20-40) % Emmons % (Auto) 7.1 (2-11) % Eos % (Auto) 1.4 (0-4) % Baso % (Auto) 0.9 (0-2) % Lymph # (Auto) 2.2 (1.2-4.9) X10*3/uL Emmons # (Auto) 0.5 (0.1-1.2) X10*3/uL Eos # (Auto) 0.1 (0.0-0.4) X10*3/uL Baso # (Auto) 0.1 (0.0-0.2) X10*3/uL Abs Immat Gran (auto) 0.02 (0.00-0.03) X10*3/uL Absolute Neuts (auto) 4.1 (2.0-8.3) x10*3/uL Absolute Nucleated RBC 0.000 (0.0-0.012) X10*3/uL Nucleated RBC % (auto) 0.0 (0.0-0.2) /100WBC Sodium 138 (135-145) mmol/L Potassium 4.4 (3.3-5.1) mmol/L Chloride 101 (96-108) mmol/L Carbon Dioxide 29 (22-29) mmol/L Anion Gap 12 (12-20) BUN 10 (9-16) mg/dL Creatinine 0.76 (0.5-1.4) mg/dL Estim Creat Clear Calc 140.0 Estimated GFR > 60 Random Glucose 298 H (60-115) mg/dL Calcium 9.9 D (8.4-10.2) mg/dL Magnesium 1.9 (1.6-2.6) mg/dL Total Bilirubin 1.2 H (0.0-1.0) mg/dL AST 16 (5-37) U/L ALT 25 (0-40) U/L Alkaline Phosphatase 68 (39-117) U/L Troponin I High Sens < 2.7 (<3.5-35.0) ng/L Total Protein 7.1 (6.5-8.0) g/dL Albumin 4.5 (3.5-5.0) g/dL Lipase 47 (8-78) U/L Influenza Type A (PCR) NEGATIVE (Negative) Influenza Type B (PCR) NEGATIVE (Negative) RSV RNA Qual (PCR) NEGATIVE (Negative) SARS-CoV-2 RNA (RT-PCR) NEGATIVE (Negative) Discharge Plan Discharge Clinical Impression: GERD (gastroesophageal reflux disease) Patient Disposition: Home, Self-Care Instructions: Gastroesophageal Reflux Disease (ED) Additional Instructions: Increase the dose of your Prilosec to 40 mg daily Avoid fried and spicy food Take sucralfate 1 tablet half an hour before meals Follow-up with beaming machine operator Prescriptions: New sucralfate 1 gram tablet 1 g PO BID Qty: 60 0RF No Action (DME) FreeStyle Amauri 14 Day [place] Misc See Rx Instructions .Route Qty: 1 3RF Rx Instructions: As directed, With meals, 14 days (DME) FreeStyle Amauri 14 Day Sensor Kit See Rx Instructions .Route Qty: 2 3RF Rx Instructions: As directed gabapentin 300 mg capsule 300 mg PO BID 30 Days Qty: 60 2RF Trulicity 0.75 mg/0.5 mL pen injector 0.75 mg subcut QWEEK 30 Days Qty: 2.5 6RF lidocaine [Lidoderm] 5 % adhesive patch,medicated 1 patch topical DAILY Qty: 30 0RF Rx Instructions: leave on most painful area for up to 12 hrs atorvastatin 40 mg tablet 40 mg PO BEDTIME 90 Days Qty: 90 3RF fluticasone propionate [Flonase Allergy Relief] 50 mcg/actuation spray,suspension 1 spray intranasal BID Qty: 16 0RF Rx Instructions: administer into each nostril metformin 1,000 mg tablet 1,000 mg PO BID 90 Days Qty: 180 3RF omeprazole 20 mg capsule,delayed release(DR/EC) 20 mg PO DAILY 90 Days Qty: 90 3RF Humalog KwikPen Insulin 200 unit/mL (3 mL) insulin pen 10 unit subcut TID 90 Days Qty: 13.5 1RF gabapentin 100 mg capsule 100 mg PO TID Qty: 30 0RF cholecalciferol (vitamin D3) 1,250 mcg (50,000 unit) capsule 1,250 mcg PO QWEEK 30 Days Qty: 5 6RF Referrals: Ivis Porter MD [Physician] - 1 week Stand Alone Forms: Work/School Release Interventions: ED Discharge Assessment Last Done: 11/16/23 02:06 Discharge Date/Time: 11/16/23 01:15
[2023-11-15 16:38] VITALS: BP 118/76; PULSE 68; RESP 18; TEMP 37; O2SAT 100; BMI 29.0
--- NOTE | 2023-11-15 16:38 | ECG_ITS ---
Test Reason : CHEST TIGHTNESS Blood Pressure : / mmHG Vent. Rate : 065 BPM Atrial Rate : 065 BPM P-R Int : 142 ms QRS Dur : 096 ms QT Int : 372 ms P-R-T Axes : 020 013 023 degrees QTc Int : 386 ms Normal sinus rhythm Normal ECG When compared with ECG of 16-FEB-2023 11:53, Vent. rate has decreased BY 36 BPM Referred By: Kellie Powell Electronically Signed By:TORO VILLAVICENCIO
[2023-11-15 17:30] LABS: MANUAL DIFF FLAG NO
[2023-11-15 17:45] LABS: Alanine Aminotransferase 25 U/L (0-40); Albumin Level 4.5 g/dL (3.5-5.0); Alkaline Phosphatase 68 U/L (39-117); Anion Gap 12 (12-20); Aspartate Amino Transferase 16 U/L (5-37); Bilirubin Total 1.2 mg/dL (0.0-1.0); Blood Urea Nitrogen 10 mg/dL (9-16); Calcium 9.9 mg/dL (8.4-10.2); Carbon Dioxide 29 mmol/L (22-29); Chloride 101 mmol/L (96-108); Estimated Glomerular Filt Rate > 60; Glucose Random 298 mg/dL (60-115); Magnesium 1.9 mg/dL (1.6-2.6); Potassium 4.4 mmol/L (3.3-5.1); Sodium 138 mmol/L (135-145); Total Protein 7.1 g/dL (6.5-8.0)
[2023-11-15 17:53] LABS: Troponin-I High Sensitivity < 2.7 ng/L (<3.5-35.0)
[2023-11-15 17:55] LABS: Basophils Absolute Auto 0.1 X10*3/uL (0.0-0.2); Basophils Percent Auto 0.9 % (0-2); Eosinophils Absolute Auto 0.1 X10*3/uL (0.0-0.4); Eosinophils Percent Auto 1.4 % (0-4); Hemoglobin 13.2 g/dl (14.0-18.0); Imm Gran Abs Auto 0.02 X10*3/uL (0.00-0.03); Imm Gran Pct Auto 0.3 % (0.0-0.4); Lymphocytes Absolute Auto 2.2 X10*3/uL (1.2-4.9); Lymphocytes Percent Auto 31.6 % (20-40); Mean Corpuscular HGB Conc 32.2 g/dl (31.0-36.0); Mean Corpuscular Hemoglobin 26.7 pg (27.0-33.0); Mean Corpuscular Volume 82.8 fL (80.0-98.0); Mean Platelet Volume 10.4 fL (9.4-12.4); Monocytes Absolute Auto 0.5 X10*3/uL (0.1-1.2); Monocytes Percent Auto 7.1 % (2-11); Neutrophils Absolute Auto 4.1 x10*3/uL (2.0-8.3); Neutrophils Percent Auto 58.7 % (45-73); Platelet Count 252 X10*3/uL (160-400); Red Blood Count 4.95 X10*6/uL (4.60-5.80); Red Cell Distribution Width 13.3 % (11.0-16.0)
[2023-11-15 18:09] LABS: Influenza A PCR NEGATIVE (Negative); Influenza B PCR NEGATIVE (Negative); Resp Syncy Virus RNA Qual PCR NEGATIVE (Negative); SARS COV2 PCR INHOUSE NEGATIVE (Negative)
[2023-11-15 19:15] VITALS: BP 101/71; PULSE 66; RESP 16; TEMP 36.6; O2SAT 97
[2023-11-15 23:06] VITALS: BP 114/71; PULSE 60; RESP 16; TEMP 36.5; O2SAT 100
[2023-11-16 00:48] LABS: Lipase 47 U/L (8-78)
[2023-11-16] MEDS: Magnesium Hydrox/Alum Hydrox 30 ML ORAL.SUSP PO (01:06)
[2023-11-16 01:15] VITALS: BP 122/86; PULSE 84; RESP 16; TEMP 37; O2SAT 100
[2023-11-16 02:06] VITALS: BP 122/86; PULSE 84; RESP 16; TEMP 37; O2SAT 100
== END 2023-11-16 01:15 | disposition home or self-care (01) ==
PROVIDERS: Physician Assistant Medical; Emergency Provider Internal Medicine; PCP Internal Medicine
DX: K21.9 Gastro-esophageal reflux disease without esophagitis (principal); E11.9 Type 2 diabetes mellitus without complications; Z79.899 Other long term (current) drug therapy; Z11.52 Encounter for screening for COVID-19; Z20.828 Contact with and (suspected) exposure to other viral communicable diseases
CPT/HCPCS: 0241U; 80053; 83690; 83735; 84484; 85025; 93005; 99283; 99284

== ENCOUNTER → 2023-11-15 16:38 | Outpatient (BNV) | payer SELFPAY | PROVIDERS: Emergency Provider Internal Medicine; PCP Internal Medicine; Visit Provider Internal Medicine | DX: R07.9 Chest pain, unspecified (principal) | CPT/HCPCS: 93010 ==

== ENCOUNTER 2025-04-27 09:25 | Outpatient (REF) | payer MEDICAID, SELFPAY ==
[2025-04-27 11:41] LABS: MANUAL DIFF FLAG NO
[2025-04-27 12:05] LABS: Hematocrit 40.3 % (42.0-52.0); Hemoglobin 12.9 g/dl (14.0-18.0); Imm Gran Abs Auto 0.05 X10*3/uL (0.00-0.03); Imm Gran Pct Auto 0.7 % (0.0-0.4); Lymphocytes Absolute Auto 1.9 X10*3/uL (1.2-4.9); Mean Corpuscular HGB Conc 32.0 g/dl (31.0-36.0); Mean Corpuscular Hemoglobin 26.3 pg (27.0-33.0); Mean Corpuscular Volume 82.1 fL (80.0-98.0); NRBC Abs Auto 0.000 X10*3/uL (0.0-0.012); NRBC Pct Auto 0.0 /100WBC (0.0-0.2); Platelet Count 254 X10*3/uL (160-400); Red Blood Count 4.91 X10*6/uL (4.60-5.80); White Blood Count 6.9 X10*3/uL (4.8-10.8)
[2025-04-27 12:52] LABS: Alanine Aminotransferase 21 U/L (0-40); Albumin Level 4.9 g/dL (3.5-5.0); Alkaline Phosphatase 57 U/L (39-117); Amylase 55 U/L (28-100); Anion Gap 11 (12-20); Aspartate Amino Transferase 17 U/L (5-37); Blood Urea Nitrogen 12 mg/dL (9-16); Calcium 9.9 mg/dL (8.4-10.2); Carbon Dioxide 31 mmol/L (22-29); Chloride 102 mmol/L (96-108); Estimated Glomerular Filt Rate > 60; Lipase 66 U/L (8-78); Potassium 4.7 mmol/L (3.3-5.1); Sodium 139 mmol/L (135-145); Total Protein 7.5 g/dL (6.5-8.0)
== END 2025-04-27 09:26 | disposition home or self-care (01) ==
LOC: HO.HHCL 09:25
PROVIDERS: PCP Internal Medicine; Visit Provider Family Medicine
DX: R10.13 Epigastric pain (principal)
CPT/HCPCS: 36415; 80053; 82150; 83690; 85025

== ENCOUNTER 2025-04-28 11:37 | Outpatient (REF) | payer MEDICAID, SELFPAY ==
--- OUTSIDE RECORDS SUMMARY | 2025-04-27 09:00 | XMS_ITS | Encounter Summary ---
Author Organization [employer] Address [address] [facility] [address] [place] [address] Care Team Providers Care Dock Associate Name Role Phone Unavailable Primary Care Provider Unavailabl e Reason for Visit * Reason Comments Abdominal Pain Encounter Details Date Type Department Care Team (Late st Contact Info) Description 04/27/2025 9:00 AM EDT Office Visit [facility] [address], [place] [phone] Chepe Cedeno MD [address] [place] [phone] Epigastric pain (Primary Dx) Social History Tobacco Use Types Packs/Day Years Used Date Smoking Tobacco: Never Assessed Sex and Gender Information Value Date Recorded Sex Assigned at Male 04/27/2025 8:48 AM EDT Legal Sex Male 11:33 AM EDT Gender Identity Male 04/27/2025 8:48 AM EDT Sexual Orientation Straight 04/27/2025 8: 48 AM EDT documented as of this encounter Last Filed Vital Signs Vital Sign Reading Time Taken Comments Blood Pressure 128/81 04/27/2025 9:04 AM EDT Pulse 91 04/27/2025 9:04 AM EDT Temperature 36.9 C (98.4 F) 04/27/2025 9:04 AM EDT Respiratory Rate 18 04/27/2025 9:04 AM EDT Oxygen Saturation 97% 04/27/2025 9:04 AM EDT Inhaled Oxygen Concentration - - Weight 88.9 kg (196 lb) 04/27/2025 9:04 AM EDT Height - - Body Mass Index - - documented in this encounter Progress Notes * Chepe Cedeno MD - 04/27/2025 9:00 AM EDT Subjective History was provided by the patient. Rene Parikh is a 34 y.o. male NEW PATIENT who presents for evaluation of epigastric discomfort for 1 year. Just got his insurance reinstated. Occasional nausea, but denies vomiting or diarrhea. Denies F/C. Denies alcohol consumption. Distant history of inguinal hernia repair. Denies BRBPR ormelena. No constipation. Denies dysuria or hematuria. Unable to discern if his symptoms are worse with food or without. Denies any spicy food consumption. Reports decreased appetite. Tried Pepto-Bismol without significant improvement. History of GERD, but no current reflux symptoms. Has shellfish allergy. Denies any new medications. Awaiting for a new PCP appointment. Objective Vitals: 04/27/25 0904 BP: 128/81 BP Location: Right arm Patient Position: Sitting BP Cuff Size: Adult Pulse: 91 Resp: 18 Temp: 98.4 ??F (36.9 ??C) TempSrc: Temporal SpO2: 97% Weight: 196 lb (88.9 kg) Physical Exam Vitals reviewed. Constitutional: General: He is not in acute distress. Appearance: Normal appearance. He is not ill-appearing, toxic-appearing or diaphoretic. HENT: Head: Normocephalic and atraumatic. Right Ear: Tympanic membrane, ear canal and external ear normal. Left Ear: Tympanic membrane, ear canal and external ear normal. Nose: Nose normal. No congestion or rhinorrhea. Mouth/Throat: Mouth: Mucous membranes are moist. Pharynx: Oropharynx is clear. No oropharyngeal exudate or posterior oropharyngeal erythema. Eyes: Extraocular Movements: Extraocular movements intact. Conjunctiva/sclera: Conjunctivae normal. Pupils: Pupils are equal, round, and reactive to light. Cardiovascular: Rate and Rhythm: Normal rate and regular rhythm. Heart sounds: Normal heart sounds. Pulmonary: Effort: Pulmonary effort is normal. No respiratory distress. Breath sounds: Normal breath sounds. No wheezing, rhonchi or rales. Chest: Chest wall: No tenderness. Abdominal: General: Abdomen is flat. There is no distension. Palpations: Abdomen is soft. Tenderness: There is abdominal tenderness (minimal epigastric tenderness without rebound/guarding).There is no right CVA tenderness, left CVA tenderness, guarding or rebound. Musculoskeletal: General: Normal range of motion. Cervical back: Neck supple. Lymphadenopathy: Cervical: No cervical adenopathy. Skin: General: Skin is warm and dry. Neurological: General: No focal deficit present. Mental Status: He is alert and oriented to person, place, and time. Psychiatric: Mood and Affect: Mood normal. Behavior: Behavior normal. Rene was seen today for abdominal pain. Diagnoses and all orders for this visit: Epigastric pain (Primary) - CBC auto differential; Future - Comprehensive Metabolic Panel; Future - Amylase; Future - Lipase; Future - Helicobacter pylori Antigen, EIA, Stool; Future - omeprazole OTC (PriLOSEC OTC) 20 MG EC tablet; Take 1 tablet (20 mg) by mouth before breakfast. New patient presents to [facility] due to 1-year duration of epigastric tenderness No clinical evidence of acute abdomen Abdomen soft without distension, rebound, or guarding No significant alcohol or spicy food consumption Will check CBC, CMP, Amylase, and Lipase Will also check Helicobacter pylori Stool Antigen test Trial of Omeprazole 20mg daily Potential adverse effects of the medication reviewed Advised to contact the clinic if persistent or worsening symptoms Indications for UC/ER use reviewed documented in this encounter Plan of Treatment Scheduled Orders Name Type Priority Associated Diagnoses Orde r Schedule Helicobacter pylori Antigen, EIA, Stool Lab Routine Epigastric pain Expected: 04/27/2025, Expires: 04/27/2026 documented as of this encounter Procedures Procedure Name Priority Date/Time Associated Diagnosis Comments CBC WITH AUTO DIFFERENTIAL Routine 04/27/2025 9:34 AM EDT Epigastric pain LIPASE Routine 04/27/2025 9:34 AM EDT Epigastric pain AMYLASE Routine 04/27/2025 9:34 AM EDT Epigastric pain COMPREHENSIVE METABOLIC PANEL Routine 04/27/2025 9:34 AM EDT Epigastric pain documented in this encounter Results * Lipase (04/27/2025 9:34 AM EDT) Lipase 66 8 - 78 U/L [facility] Blood Venous blood specimen / Unknown 04/27/2025 9:34 AM EDT 04/27/2025 11:38 AM EDT us Chepe Cedeno MD LAB BLOOD ORDERABLES Final Resul t Performing Organization Address [facility] de Phone Number [facility] [address] [place] [phone] * Amylase (04/27/2025 9:34 AM EDT) Amylase 55 28 - 100 U/L [facility] Blood Venous blood specimen / Unknown 04/27/2025 9:34 AM EDT 04/27/2025 11:38 AM EDT us Chepe Cedeno MD LAB BLOOD ORDERABLES Final Resul t Performing Organization Address [facility] de Phone Number [facility] [address] [place] [phone] * (ABNORMAL) Comprehensive Metabolic Panel (04/27/2025 9:34 AM EDT) Pathologist [facility] Sodium 139 135 - 145 mmol/L [facility] Potassium 4.7 3.3 - 5.1 mmol/L [facility] Chloride 102 96 - 108 mmol/L [facility] Carbon Dioxide 31(H) 22 - 29 mmol/L [facility] Anion Gap 11(L) 12 - 20 [facility] Urea Nitrogen (BUN) 12 9 - 16 mg/dL [facility] Creatinine, Serum 0.65 0.5 - 1.4 mg/dL [facility] Estimated Glomerular Filt Rate >60 [facility] Comment:Chronic Kidney Disea se: Estimated GFR < 60 mL/min/[id number] Kidney Disease: Estimated GFR < 15 mL/min/1.73m2 Glucose 323(H) 60 - 115 mg/dL [facility] Calcium 9.9 8.4 - 10.2 mg/dL [facility] Bilirubin, Total 0.7 0.0 - 1.0 mg/dL [facility] Aspartate Amino Transferase 17 5 - 37 U/L [facility] Alanine Aminotransferase 21 0 - 40 U/L [facility] Total Protein 7.5 6.5 - 8.0 g/dL [facility] Albumin Level 4.9 3.5 - 5.0 g/dL [facility] Alkaline Phosphatase 57 39 - 117 U/L [facility] Blood Venous blood specimen / Unknown 04/27/2025 9:34 AM EDT 04/27/2025 11:38 AM EDT us Chepe Cedeno MD LAB BLOOD ORDERABLES Final Resul t [facility] [address] [place] [phone] * (ABNORMAL) CBC auto differential (04/27/2025 9:34 AM EDT) White Blood Count 6.9 4.8 - 10.8 X10*3/uL [facility] Red Blood Count 4.91 4.60 - 5.80 X10*6/uL [facility] Hemoglobin 12.9(L) 14.0 - 18.0 g/dl [facility] Hematocrit 40.3(L) 42.0 - 52.0 % [facility] Mean Corpuscular Volume 82.1 80.0 - 98.0 fL [facility] Mean Corpuscular Hemoglobin 26.3(L) 27.0 - 33.0 pg [facility] Mean Corpuscular HGB Conc 32.0 31.0 - 36.0 g/dl [facility] Red Cell Distribution Width 13.7 11.0 - 16.0 % [facility] Platelet Count 254 160 - 400 X10*3/uL [facility] Mean Platelet Volume 11.5 9.4 - 12.4 fL [facility] Neutrophils Percent Auto 58.0 45 - 73 % [facility] Imm Gran Pct Auto 0.7(H) 0.0 - 0.4 % [facility] Lymphocytes Percent Auto 27.6 20 - 40 % [facility] Monocytes Percent Auto 11.1(H) 2 - 11 % [facility] Eosinophils Percent Auto 1.6 0 - 4 % [facility] Basophils Percent Auto 1.0 0 - 2 % [facility] NRBC Pct Auto 0.0 0.0 - 0.2 /100WBC [facility] Neutrophils Absolute Auto 4.0 2.0 - 8.3 x10*3/uL [facility] Imm Gran Abs Auto 0.05(H) 0.00 - 0.03 X10*3/uL [facility] Lymphocytes Absolute Auto 1.9 1.2 - 4.9 X10*3/uL [facility] Monocytes Absolute Auto 0.8 0.1 - 1.2 X10*3/uL [facility] Eosinophils Absolute Auto 0.1 0.0 - 0.4 X10*3/uL [facility] Basophils Absolute Auto 0.1 0.0 - 0.2 X10*3/uL [facility] NRBC Abs Auto 0.000 0.0 - 0.012 X10*3/uL [facility] Blood Venous blood specimen / Unknown 04/27/2025 9:34 AM EDT 04/27/2025 11:38 AM EDT us Chepe Cedeno MD LAB BLOOD ORDERABLES Final Resul t [facility] [address] [place] [phone] documented in this encounter Visit Diagnoses Diagnosis Epigastric pain- Primary Abdominal pain, epigastric documented in this encounter
--- OUTSIDE RECORDS SUMMARY | 2025-04-28 11:40 | XMS_ITS | Encounter Summary ---
Author Organization [email or web address] Address [address] [place] [address] Care Team Providers Care Granite Installer Name Role Phone Unavailable Primary Care Provider Unavailabl e Encounter Details Date Type Department Care Team (Latest Contact Info) Description 04/27/2025 Travel Social History Tobacco Use Types Packs/Day Years Used Date Smoking Tobacco: Never Assessed Sex and Gender Information Value Date Recorded Sex Assigned at Male 04/27/2025 8:48 AM EDT Legal Sex Male 11:33 AM EDT Gender Identity Male 04/27/2025 8:48 AM EDT Sexual Orientation Straight 04/27/2025 8: 48 AM EDT documented as of this encounter Plan of Treatment Not on file documented as of this encounter Visit Diagnoses Not on filedocumented in this encounter
--- OUTSIDE RECORDS SUMMARY | 2025-04-28 11:41 | XMS_ITS | Clinical Summary ---
Author Organization [employer] Address [address] [facility] [address] [place] [address] Care Team Providers Care Chief Technician X Ray Name Role Phone Unavailable Primary Care Provider Unavailabl e Allergies Active Allergy Reactions Criticality Noted Date Comments Shellfish-Derived Products Rash Low Medications omeprazole OTC (PriLOSEC OTC) 20 MG EC tabletIndication s:Epigastric pain Take 1 tablet (20 mg) by mouth before breakfast. 30 tablet 04/27/2025 Active Encounters Date Type Department Care Team Description 04/27/2025 9:00 AM EDT Office Visit [facility] [address] [address] Chepe Cedeno MD Epigastric pain (Primary Dx) 04/27/2025 Travel from Last 3 Months Social History Tobacco Use Types Packs/Day Years Used Date Smoking Tobacco: Never Assessed Sex and Gender Information Value Date Recorded Sex Assigned at Male 04/27/2025 8:48 AM EDT Legal Sex Male 11:33 AM EDT Gender Identity Male 04/27/2025 8:48 AM EDT Sexual Orientation Straight 04/27/2025 8: 48 AM EDT Last Filed Vital Signs Vital Sign Reading [...] - - Body Mass Index - - Plan of Treatment Health Maintenance Due Date Last Done Comments Depression Screening 1991 HIV Screening 1991 SDOH Screening 1991 Disability Screening 1991 Alcohol/Substance Use Screening 2003 Tobacco Screening 2003 Family Planning (PISQ) 2006 HPV Vaccines (1 - Male 3-dose series) 2006 Hepatitis C Screening 2009 Hepatitis B Vaccines (1 of 3 - 19+ 3-dose series) 2010 COVID-19 Vaccine (4 - season) 2024 09/19/2021, 01/11/2021, 12/21/2020 Influenza Vaccine (#1) 2025 2, 09/18/2021, 10/10/2019, Additional history exists DTaP/Tdap/Td Vaccines (2 - Td or Tdap) 07/30/2026 07/30/2016 Zoster Vaccines (1 of 2) 2041 RSV Patients and Patients Aged 60 years or older (1 - 1-dose 75+ series) 2066 Pneumococcal Vaccine: Pediatrics (0 to 5 Years) and At-Risk Patients (6 to 49) Years Aged Out 12/13/2017 No longer eligible based on patient's age to complete this topic HIB Vaccines Aged Out No longer eligi ble based on patient's age to complete this topic Hepatitis A Vaccines Aged Out No long er eligible based on patient's age to complete this topic IPV Vaccines Aged Out No longer eligi ble based on patient's age to complete this topic Meningococcal B Vaccine Aged Out No l onger eligible based on patient's age to complete this topic Meningococcal Vaccine Aged Out No pippa sherley eligible based on patient's age to complete this topic RSV under 20 months Aged Out No longe r eligible based on patient's age to complete this topic Rotavirus Vaccines Aged Out No longer eligible based on patient's age to complete this topic Procedures Procedure Name Priority Date/Time Associated Diagnosis Comments LIPASE Routine 04/27/2025 9:34 AM EDT Epigastric pain AMYLASE Routine 04/27/2025 9:34 AM EDT Epigastric pain COMPREHENSIVE METABOLIC PANEL Routine 04/27/2025 9:34 AM EDT Epigastric pain CBC WITH AUTO DIFFERENTIAL Routine 04/27/2025 9:34 AM EDT Epigastric pain from Last 3 Months Results * (ABNORMAL) CBC auto differential (04/27/2025 9:34 AM EDT) Pathologist [facility] White Blood Count 6.9 4.8 - 10.8 X10*3/uL [facility] Red Blood Count 4.91 4.60 - 5.80 X10*6/uL [facility] Hemoglobin 12.9(L) 14.0 - 18.0 g/dl [facility] Hematocrit 40.3(L) 42.0 - 52.0 % [facility] Mean Corpuscular Volume 82.1 80.0 - 98.0 fL [facility] Mean Corpuscular Hemoglobin 26.3(L) 27.0 - 33.0 pg [facility] Mean Corpuscular HGB Conc 32.0 31.0 - 36.0 g/dl [facility] Red Cell Distribution Width 13.7 11.0 - 16.0 % [facility] Platelet Count 254 160 - 400 X10*3/uL [facility] Mean Platelet Volume 11.5 9.4 - 12.4 fL [facility] Neutrophils Percent Auto 58.0 45 - 73 % [facility] Imm Gran Pct Auto 0.7(H) 0.0 - 0.4 % [facility] Lymphocytes Percent Auto 27.6 20 - 40 % [facility] Monocytes Percent Auto 11.1(H) 2 - 11 % [facility] Eosinophils Percent Auto 1.6 0 - 4 % [facility] Basophils Percent Auto 1.0 0 - 2 % [facility] NRBC Pct Auto 0.0 0.0 - 0.2 /100WBC [facility] Neutrophils Absolute Auto 4.0 2.0 - 8.3 x10*3/uL [facility] Imm Gran Abs Auto 0.05(H) 0.00 - 0.03 X10*3/uL [facility] Lymphocytes Absolute Auto 1.9 1.2 - 4.9 X10*3/uL [facility] Monocytes Absolute Auto 0.8 0.1 - 1.2 X10*3/uL [facility] Eosinophils Absolute Auto 0.1 0.0 - 0.4 X10*3/uL [facility] Basophils Absolute Auto 0.1 0.0 - 0.2 X10*3/uL [facility] NRBC Abs Auto 0.000 0.0 - 0.012 X10*3/uL [facility] Blood Venous blood specimen / Unknown 04/27/2025 9:34 AM EDT 04/27/2025 11:38 AM EDT Chepe Cedeno MD LAB BLOOD ORDERABLES Final Resul t Performing Organization Address City/[facility]/ZIP Co de Phone Number [facility] [address] [place] [phone] * Lipase (04/27/2025 9:34 AM EDT) Lipase 66 8 - 78 U/L [facility] Blood Venous blood specimen / Unknown 04/27/2025 9:34 AM EDT 04/27/2025 11:38 AM EDT Chepe Cedeno MD LAB BLOOD ORDERABLES Final Resul t Performing Organization Address City/[facility]/ZIP Co de Phone Number [facility] [address] [place] [phone] * Amylase (04/27/2025 9:34 AM EDT) Amylase 55 28 - 100 U/L [facility] Blood Venous blood specimen / Unknown 04/27/2025 9:34 AM EDT 04/27/2025 11:38 AM EDT Chepe Cedeno MD LAB BLOOD ORDERABLES Final Resul t Performing Organization Address City/[facility]/ZIP Co de Phone Number [facility] [address] [place] [phone] * (ABNORMAL) Comprehensive Metabolic Panel (04/27/2025 9:34 AM EDT) Sodium 139 135 - 145 mmol/L [facility] Potassium 4.7 3.3 - 5.1 mmol/L [facility] Chloride 102 96 - 108 mmol/L [facility] Carbon Dioxide 31(H) 22 - 29 mmol/L [facility] Anion Gap 11(L) 12 - 20 [facility] Urea Nitrogen (BUN) 12 9 - 16 mg/dL [facility] Creatinine, Serum 0.65 0.5 - 1.4 mg/dL [facility] Estimated Glomerular Filt Rate >60 [facility] Comment:Chronic Kidney Disea se: Estimated GFR < 60 mL/min/1.27e2Raglhu Kidney Disease: Estimated GFR < 15 mL/min/1.73m2 Glucose 323(H) 60 - 115 mg/dL [facility] Calcium 9.9 8.4 - 10.2 mg/dL [facility] Bilirubin, Total 0.7 0.0 - 1.0 mg/dL [facility] Aspartate Amino Transferase 17 5 - 37 U/L [facility] Alanine Aminotransferase 21 0 - 40 U/L [facility] Total Protein 7.5 6.5 - 8.0 g/dL [facility] Albumin Level 4.9 3.5 - 5.0 g/dL [facility] Alkaline Phosphatase 57 39 - 117 U/L [facility] Blood Venous blood specimen / Unknown 04/27/2025 9:34 AM EDT 04/27/2025 11:38 AM EDT Chepe Cedeno MD LAB BLOOD ORDERABLES Final Resul t [facility] [address] [place] [phone] from Last 3 Months Insurance [facility] C3
== END 2025-04-28 11:38 | disposition home or self-care (01) ==
LOC: HO.LNP 11:37
PROVIDERS: Visit Provider Family Medicine
DX: R10.13 Epigastric pain (principal)
CPT/HCPCS: 87338

== ENCOUNTER 2025-04-28 12:46 | Emergency (ER) | payer MEDICAID, SELFPAY ==
[2025-04-28 12:53] VITALS: BP 129/71; PULSE 82; RESP 16; TEMP 36.4; O2SAT 97; BMI 31.5
--- NOTE | 2025-04-28 12:57 | ED_ITS ---
HPI - General Adult General Chief complaint: Abdominal Pain Stated complaint: burning sensation Time Seen by Provider: 04/28/25 13:03 Source: patient Mode of arrival: ambulatory Limitations: no limitations History of Present Illness ED Provider: DR. Fitzgerald HPI narrative: A 34-year-old male long history of GERD, DM, presented with epigastric abdominal burning pain, the he had for years, patient did not seek medical attention because he lost his health insurance for the last couple years now since he restart his health insurance came in today for further evaluation of epigastric pain that is mostly with food. No history of alcohol abuse, no history of drug use, no history of prior GI evaluation. No fever, no chills, no nausea, no vomiting, no blood in the stool. Related Data Previous Rx's ?Medication ?Instructions ?Recorded cholecalciferol (vitamin D3) 1,250 1,250 mcg PO QWEEK 30 days #5 caps 09/18/21 mcg (50,000 unit) capsule flash glucose scanning reader #1 ea 11/03/21 (FreeStyle Amauri 14 Day [place]) atorvastatin 40 mg tablet 40 mg PO BEDTIME 90 days #90 tabs 04/09/23 fluticasone propionate 50 1 spray intranasal BID #16 g rajendra 04/09/23 mcg/actuation nasal spray,suspension (Flonase Allergy Relief) insulin lispro 200 unit/mL (3 mL) 10 unit (0.05 mL) kennedy bcut TID 90 04/09/23 subcutaneous pen (Humalog KwikPen days #13.5 mL U-200 Insulin) lidocaine 5 % topical patch 1 patch topical DAILY #30 ea 04/09/23 (Lidoderm) gabapentin 100 mg capsule 100 mg PO TID #30 caps 05/06 flash glucose sensor (FreeStyle #2 ea 08/17/23 Amauri 14 Day Sensor kit) sucralfate 1 gram tablet 1 g PO BID #60 tabs 11/16/23 dulaglutide 0.75 mg/0.5 mL 0.75 mg (0.5 mL) subcut QWE EK 30 04/24/25 subcutaneous pen injector days #2.5 mL (Trulicity) gabapentin 300 mg capsule 300 mg PO BID 30 days #60 ca ps 04/24/25 metformin 1,000 mg tablet 1,000 mg PO BID 90 days #180 tabs 04/24/25 omeprazole 20 mg capsule,delayed 20 mg PO DAILY 90 day s #90 caps 04/24/25 release omeprazole 40 mg capsule,delayed 40 mg PO DAILY #30 ca ps 04/28/25 release Allergies Allergy/AdvReac Type Severity Reaction Status Date / Time shellfish derived (SHELLFISH Allergy Unknown UNKNOWN Verified 04/28/25 12:56 DERIVED) Review of Systems Review of Systems: All other systems are reviewed and are negative Constitutional: Reports as per HPI and Reports no additional constitutional complaints Eyes: Reports as per HPI and Reports no additional eye complaints Reports system reviewed and no additional complaints, except as documented Cardiovascular: Reports as per HPI and Reports no additional cardiovascular complaints Respiratory: Reports as per HPI and Reports no additional respiratory complaints Gastrointestinal: Reports as per HPI and Reports no additional gastrointestinal complaints Genitourinary: Reports no additional female genitourinary complaints Musculoskeletal: Reports no additional musculoskeletal complaints Skin/Breast: Reports system reviewed and no additional complaints, except as docu Psychiatric: Reports no additional psychiatric complaints Endocrine: Reports no additional endocrine complaints Hematologic/Lymphatic: Reports no additional hematologic/lymphatic complaints Allergic/Immunologic: Reports no additional allergic/immunologic complaints Reports system reviewed and no additional complaints, except as documented and Reports Abnormal speech present [facility] Past Medical History Medical History Hypovitaminosis D GERD (gastroesophageal reflux disease) Pure hypercholesterolemia Diabetes mellitus Surgical History History of inguinal hernia repair Family History Family History Father CAD (coronary artery disease) Diabetes Hypertension Mother Diabetes Hypertension Social History Social History Housing: Apartment Alcohol intake: current Alcohol intake frequency: does not drink Patient Tobacco Use Status: Never used Tobacco Second Hand Smoke Exposure: No service: No Current occupational status: unemployed and student Cognitive needs: No Hearing needs: No Vision needs: No Physical Exam ED Vital Signs: Vital Signs - 24 hr 04/28/25 12:53 Temperature 97.6 F Pulse Rate 82 Respiratory Rate 16 Blood Pressure 129/71 Pulse Oximetry 97 Oxygen Delivery Method Room Air BMI result Body Mass Index 31.5 Vital signs have been reviewed and appear to be correct. Blood pressure elevated. Heart rate normal. Respiratory rate normal. Temperature normal. Oxygen saturation normal. Appearance: Alert. Oriented X3. No acute distress. Head: Normal external exam. Normocephalic. Atraumatic. No Valverde signs noted. No raccoon eyes noted Eyes: PERRLA. EOMI. Conjunctiva and sclera normal. Eyelids normal. ENT: TM's Normal. Pharynx normal. Uvula midline. Moist mucous membranes. No trismus noted. No drooling noted. No muffled voice noted. Neck: Normal inspection. Neck supple. FROM. No adenopathy. Thyroid Normal. No meningeal signs. No neck mass noted. CVS: Normal heart rate and rhythm. Heart sound normal. No murmurs noted. Pulses normal throughout. Respiratory: No respiratory distress. Painless inspiration. Breath sounds normal. No wheezes/rales/rhonchi noted. Chest nontender. No accessory muscle usage noted or decreased air movement noted. Abdomen: Soft , mild epigastric tenderness, no rebound tenderness, no guarding.. Bowel sounds normal in all 4 quadrants. No distention noted. No organomegaly noted. No visible injury noted. Back: No CVA tenderness. Full range of motion noted. Skin: Skin warm and dry. Normal skin color. Normal skin turgor. No rashes/lesions/lacerations noted. Extremities: No lower extremity edema. Extremities exhibit normal range of motion. Extremities nontender. Neuro: Oriented X 3. Cranial nerve exam: II-XII are grossly intact No motor deficit. No sensory deficit. Reflexes normal. Course Course Course Narrative: RME, this is a rapid medical exam performed by Esvin Chase please refer to primary provider for complete H&P- 34-year-old male with history of GERD presents for evaluation of burning upper abdominal pain. Plan for labs and urinalysis Reevaluation(s) Reevaluation #1: GERD for many years, patient needs GI assessment, patient did not seek medical attention because lack of lack insurance. Will start the patient on Prilosec, and follow-up with GI. No gallbladder issue. Time: 13:20 Medical Decision Making Differential Diagnosis Differential Diagnoses: The differential diagnosis associated with the presentation includes (Gastritis, cholelithiasis, acute cholecystitis, electrolyte derangement, severe anemia, pancreatitis, electrolyte derangement, severe anemia.) Admission/Observation Consideration of admission/observation: Escalation of care including admission/observation considered Lab Data MDM Lab Attestation statement: I reviewed the patient's lab results. Discharge Plan Discharge Clinical Impression: Gastritis Patient Disposition: Home, Self-Care Instructions: Gastritis (ED) Prescriptions: New omeprazole 40 mg capsule,delayed release(DR/EC) 40 mg PO DAILY Qty: 30 0RF No Action (DME) FreeStyle Amauri 14 Day [place] Misc See Rx Instructions .Route Qty: 1 3RF Rx Instructions: As directed, With meals, 14 days (DME) FreeStyle Amauri 14 Day Sensor Kit See Rx Instructions .Route Qty: 2 3RF Rx Instructions: As directed Trulicity 0.75 mg/0.5 mL pen injector 0.75 mg subcut QWEEK 30 Days Qty: 2.5 6RF gabapentin 300 mg capsule 300 mg PO BID 30 Days Qty: 60 2RF metformin 1,000 mg tablet 1,000 mg PO BID 90 Days Qty: 180 3RF omeprazole 20 mg capsule,delayed release(DR/EC) 20 mg PO DAILY 90 Days Qty: 90 3RF sucralfate 1 gram tablet 1 g PO BID Qty: 60 0RF lidocaine [Lidoderm] 5 % adhesive patch,medicated 1 patch topical DAILY Qty: 30 0RF Rx Instructions: leave on most painful area for up to 12 hrs atorvastatin 40 mg tablet 40 mg PO BEDTIME 90 Days Qty: 90 3RF fluticasone propionate [Flonase Allergy Relief] 50 mcg/actuation spray,suspension 1 spray intranasal BID Qty: 16 0RF Rx Instructions: administer into each nostril Humalog KwikPen Insulin 200 unit/mL (3 mL) insulin pen 10 unit subcut TID 90 Days Qty: 13.5 1RF gabapentin 100 mg capsule 100 mg PO TID Qty: 30 0RF cholecalciferol (vitamin D3) 1,250 mcg (50,000 unit) capsule 1,250 mcg PO QWEEK 30 Days Qty: 5 6RF Referrals: [facility] [Primary Care Provider, Medical] Ivis Porter MD [Physician, Gastroenterology] Print Language: Telugu
[2025-04-28 13:07] LABS: MANUAL DIFF FLAG NO
[2025-04-28 13:08] LABS: Hematocrit 37.7 % (42.0-52.0); Hemoglobin 12.7 g/dl (14.0-18.0); Imm Gran Abs Auto 0.04 X10*3/uL (0.00-0.03); Imm Gran Pct Auto 0.5 % (0.0-0.4); Lymphocytes Absolute Auto 2.3 X10*3/uL (1.2-4.9); Mean Corpuscular HGB Conc 33.7 g/dl (31.0-36.0); Mean Corpuscular Hemoglobin 27.1 pg (27.0-33.0); Mean Corpuscular Volume 80.4 fL (80.0-98.0); NRBC Abs Auto 0.000 X10*3/uL (0.0-0.012); NRBC Pct Auto 0.0 /100WBC (0.0-0.2); Platelet Count 231 X10*3/uL (160-400); Red Blood Count 4.69 X10*6/uL (4.60-5.80); White Blood Count 8.6 X10*3/uL (4.8-10.8)
[2025-04-28] MEDS: Magnesium Hydrox/Alum Hydrox 30 ML ORAL.SUSP PO (13:22)
[2025-04-28 13:28] LABS: Alanine Aminotransferase 21 U/L (0-40); Albumin Level 4.6 g/dL (3.5-5.0); Alkaline Phosphatase 57 U/L (39-117); Anion Gap 14 (12-20); Aspartate Amino Transferase 17 U/L (5-37); Blood Urea Nitrogen 13 mg/dL (9-16); Calcium 9.4 mg/dL (8.4-10.2); Carbon Dioxide 26 mmol/L (22-29); Chloride 103 mmol/L (96-108); Creatinine Clr Calc Pharmacy 168.4; Estimated Glomerular Filt Rate > 60; Lipase 27 U/L (8-78); Potassium 4.4 mmol/L (3.3-5.1); Sodium 139 mmol/L (135-145); Total Protein 7.0 g/dL (6.5-8.0)
[2025-04-28 14:20] VITALS: BP 129/71; PULSE 82; RESP 16; TEMP 36.4; O2SAT 97
[2025-04-28 14:57] LABS: Appearance Urine Clear; Glucose Urine UA >=1000 mg/dL (Negative); PH 6.5 (5.0-9.0); Specific Gravity - Urine >= 1.030 (1.005-1.025); UMIC TRIGGER UACC YES
== END 2025-04-28 14:21 | disposition home or self-care (01) ==
PROVIDERS: Physician Assistant; Emergency Provider Emergency Medicine
DX: K29.70 Gastritis, unspecified, without bleeding (principal); R10.13 Epigastric pain; E11.9 Type 2 diabetes mellitus without complications; Z79.4 Long term (current) use of insulin; Z79.899 Other long term (current) drug therapy
CPT/HCPCS: 36415; 80053; 81001; 83690; 85025; 99283